=== PATIENT | male | born 1935 | race Caucasian/White ===

== ENCOUNTER 2021-04-05 03:23 | Inpatient (IN) ==
[2021-04-05] MEDS ORDERED: 0.9 % SODIUM CHLORIDE 500 ML IV ONE (03:24)
[2021-04-05] MEDS ORDERED: ACETAMINOPHEN 500 MG TABLET PO ONE (03:31)
[2021-04-05] MEDS ORDERED: ACETAMINOPHEN 325 MG TABLET PO ONE (03:40)
[2021-04-05 03:54] LABS: POC Blood Urea Nitrogen 56 mg/dL (6-20); POC CO2 16 mmol/L (22-30); POC Calcium, Ionized 1.15 mmEq/L (1.16-1.32); POC Chloride 114 mEq/L (96-108); POC Creatinine 2.6 mg/dL (0.6-1.2); POC Glucose, Random 131 mg/dL (70-105); POC Hematocrit 25 % (41-55); POC Sodium 144 mEq/L (133-145)
[2021-04-05 04:30] LABS: Basophils # (Auto) 0.01 K/mcL (0.00-0.30); Basophils % (Auto) 0.2 % (0.0-2.0); Eosinophils # (Auto) 0 K/mcL (0.00-0.70); Eosinophils % (Auto) 0 % (0.0-7.0); Hematocrit 29.1 % (40.1-51.0); Lymphocytes # (Auto) 0.87 K/mcL (1.50-4.80); Lymphocytes % (Auto) 20.6 % (15.5-49.0); Mean Cell Volume 104.3 fL (80.0-100.0); Mean Corpuscular HGB Conc 30.9 g/dL (31.0-36.0); Monocytes # (Auto) 0.51 K/mcL (0.10-0.90); Monocytes % (Auto) 12.1 % (1.0-12.0); Neutrophils % (Auto) 67.1 % (38.0-78.0); Platelet Count 109 K/mcL (140-440); RBC 2.79 M/mcL (4.63-6.08); Red Cell Distribution Width 13.3 % (11.5-14.5); WBC 4.2 K/mcL (4.5-11.0)
[2021-04-05] MEDS ORDERED: DEXAMETHASONE 10 MG/ML VIAL IV ONE (04:42)
[2021-04-05] MEDS ORDERED: REMDESIVIR 200 MG in 0.9 % SODIUM CHLORIDE 250 ML IV ONE (04:42)
--- NOTE | 2021-04-05 04:48 | XRay Report ---
CLINICAL INFORMATION: weakness COMPARISON: 10/10/2019 FINDINGS: Heart size, mediastinum and pulmonary vessels are normal. Mild patchy infiltrates are seen in both lower lungs. IMPRESSION: Mild vague patchy infiltrates in both lower lungs. Consider infection or aspiration Interpreted and Authenticated by: Ilir Mcintosh 04/05/21
--- NOTE | 2021-04-05 05:20 | Emergency Department Note ---
HPI General Chief complaint: Weakness Stated complaint: covid/weakness Source: patient Mode of arrival: ambulatory Limitations: no limitations History of Present Illness HPI Narrative: Narrative: Patient is an 86-year-old male who presents with chief complaint of weakness. Patient was diagnosed with Covid yesterday, after he had had several days worth of symptoms including cough and body aches. He has not had any shortness of breath throughout his duration of symptoms, and the primary reason for coming in this evening was because of worsening weakness. Patient came in by EMS after they had run on him for the third time this evening for a fall where his could not help him up. He did not hit his head or lose consciousness, and states that it was just because he was out of strength. He otherwise states he is feeling well overall. Denies any headache, neck pain, chest pain, shortness of breath, nausea, vomiting, abdominal pain, changes in bowel movements or urinary symptoms. Related Data Home Medications Medication Instructions Recorded Confirmed blood sugar diagnostic 03/25/15 03/06/21 cinnamon bark 500 mg capsule 03/25/15 03/06/21 levothyroxine 125 mcg tablet 125 mcg PO QDAY 08/30/15 03/06/21 isosorbide dinitrate 5 mg tablet 5 mg PO BID tab 11/23/15 03/06/21 lutein 20 mg tablet 20 mg PO QDAY 11/23/15 03/06/21 multivitamin,ru-mkab-hyxsyjvs 1 tab PO QDAY 11/23/15 03/06/21 saw palm 160 mg-vit E 100 tab PO QDAY tab 08/27/16 03/06/21 unit-selen 100 ave-vkby-czfbma-pygeum tablet methocarbamol 750 mg tablet 750 mg PO qhs 30 Days #30 tab 01/28/17 03/06/21 insulin degludec 100 unit/mL (3 5 unit SUB-Q QDAY ml 03/04/18 03/06/21 mL) subcutaneous pen coenzyme Q10 200 mg capsule 200 mg PO QDAY 09/03/18 03/06/21 docusate sodium 50 mg capsule 50 mg PO QDAY 09/03/18 03/06/21 grape seed extract 50 mg capsule 50 mg PO QDAY cap 09/03/18 03/06/21 atorvastatin 40 mg tablet 40 mg PO QHS 10/29/19 03/06/21 acetaminophen 500 mg tablet 1,000 mg PO QHS tab 03/03/20 03/06/21 Vipin Contour Next Test in Vitro NOT APPLICABLE .4XD 05/17/20 03/06/21 Strip Carefine Pen Ayden 32G X 4MM TRANSDERMAL .daily 05/17/20 03/06/21 One Touch Verio In Vitro Strip NOT APPLICABLE .2XD 05/17/20 03/06/21 collagen 4 tab PO QDAY 05/31/20 03/06/21 ferrous sulfate 27 mg iron tablet 27 mg PO Q OTHER DAY tab 05/31/20 03/06/21 potassium gluconate 600 mg (99 mg) 600 mg PO QDAY tab 05/31/20 03/06/21 tablet terazosin 10 mg capsule 10 mg PO QHS 90 Days #90 cap 05/31/20 03/06/21 l-argine PO QDAY 06/09/20 03/06/21 nateglinide 120 mg tablet 60 mg PO .COMPLEX tab 06/09/20 03/06/21 furosemide 20 mg tablet 20 mg PO Q OTHER DAY tab 08/29/20 03/06/21 metoprolol succinate 100 mg See Rx Instructions .ROUTE 08/29/20 03/06/21 tablet,extended release 24 hr .COMPLEX tab magnesium 200 mg tablet 400 mg PO HS tab 12/27/20 03/06/21 aspirin 81 mg tablet,delayed 81 mg PO QDAY 03/06/21 03/06/21 release hydrochlorothiazide 25 mg tablet 25 mg PO QAM 03/06/21 03/06/21 losartan 100 mg tablet 100 mg PO QDAY 03/06/21 03/06/21 Previous Rx's Medication Instructions Recorded finasteride 5 mg tablet 5 mg PO QDAY #90 tab 04/18/20 Allergies Allergy/AdvReac Type Severity Reaction Status Date / Time gabapentin Allergy Unknown Unknown Verified 04/05/21 03:24 lisinopril [LISINOPRIL] Allergy Unknown RASH Verified 04/05/21 03:24 spironolactone Allergy Unknown Possibly Verified 04/05/21 03:24 Gynecomastia Sulfa (Sulfonamide Allergy Unknown RASH Verified 04/05/21 03:24 Antibiotics) [SULFA (SULFONAMIDE ANTIBIOTICS)] Review of Systems ROS ROS Narrative: Narrative: All systems ED: reviewed and negative except as stated. PFSH Narrative Patient History Narrative: Narrative: Medical/Surgical/Family History All Active Problems (Updated 04/05/21 @ 05:27 by Ravi Bowie DO) Atrial fibrillation (Chronic) BPH without obstruction/lower urinary tract symptoms (Chronic) Cough (Chronic) Diabetes mellitus, type II (Chronic ~1993) Diabetic nephropathy (Chronic) Erectile dysfunction (Chronic) GERD (gastroesophageal reflux disease) (Chronic) Hypertension, essential (Chronic ~1979) Hypothyroidism, acquired (Chronic) Osteoarthritis (Chronic) Post herpetic neuralgia (Chronic) Renal insufficiency (Chronic) Allergic rhinitis (Chronic) Hx of adenoidectomy (Chronic) Hx of cataract surgery (Chronic) Hx of hand surgery (Chronic) Hx of hernia repair (Chronic) History of right knee joint replacement (Chronic) Hx of shoulder surgery (Chronic ~08/09/05) Hx of tonsillectomy (Chronic) CKD (chronic kidney disease), stage III (Chronic) Hypertensive renal disease (Chronic) Edema (Chronic) Anemia (Chronic) Type 2 diabetes mellitus without complication, with long-term current use of insulin (Chronic) Palpitations (Chronic) Intermittent atrial fibrillation (Chronic) CKD (chronic kidney disease), stage IV (Chronic) Sleep apnea (Chronic) Snoring (Chronic) Myalgia (Chronic) Claudication of calf muscles (Chronic) Lumbar radiculopathy (Chronic) Lumbar spinal stenosis (Chronic) Degenerative disc disease (Chronic) Restless leg syndrome (Chronic) Anxiety disorder (Chronic) Benign prostatic hyperplasia (Chronic) Squamous cell carcinoma (Chronic) Long-term insulin use (Chronic) Long-term use of aspirin therapy (Chronic) Low back pain (Chronic) Claudication of both lower extremities (Chronic) Generalized muscle weakness (Chronic) Cervical radiculopathy (Chronic) Low blood pressure (Chronic) Dizziness (Chronic) Liver disease (Chronic) Herniated disc (Chronic) Peripheral neuropathy (Chronic) History of appendectomy (Chronic) History of back surgery (Chronic ~2017) Irregular heart beat (Chronic) CAD (coronary artery disease) (Chronic) TIN (tubulointerstitial nephritis) (Chronic) Obstructive sleep apnea (Chronic) Left carotid bruit (Acute) Pre-op testing (Acute) Minor closed head injury (Acute) Maceration of skin (Acute) Contusion of face (Acute) COVID-19 (Acute) COVID-19 (Acute) Weakness (Acute) Medical History Allergic rhinitis Anemia Anxiety disorder Situational, mild Atrial fibrillation Benign prostatic hyperplasia BPH without obstruction/lower urinary tract symptoms CAD (coronary artery disease) Cervical radiculopathy CKD (chronic kidney disease), stage III Claudication of both lower extremities Claudication of calf muscles Cough Degenerative disc disease Diabetes mellitus, type II (~1993) Diabetic nephropathy Dizziness Edema Edema/lymphedema from prior viera on his legs Erectile dysfunction Generalized muscle weakness GERD (gastroesophageal reflux disease) Herniated disc Hypertension, essential (~1979) Requires multi drug treatment Hypertensive renal disease Goal blood pressure is 130/80, he has been running above that but attempts to increase his blood pressure medications have been met with orthostatic hypotension Hypothyroidism, acquired Irregular heart beat Left carotid bruit Liver disease Long-term insulin use Long-term use of aspirin therapy Low back pain Low blood pressure Lumbar radiculopathy Lumbar spinal stenosis Myalgia Obstructive sleep apnea Osteoarthritis Idiopathic Peripheral neuropathy Post herpetic neuralgia Pre-op testing Renal insufficiency Restless leg syndrome Sleep apnea Snoring Squamous cell carcinoma Type 2 diabetes mellitus without complication, with long-term current use of insulin Controlled by diet oral hypoglycemics [id number] cinnamon and long- acting insulin. No evidence of underlying diabetic renal disease Surgical History History of appendectomy History of back surgery (~2017) History of right knee joint replacement Hx of adenoidectomy Hx of cataract surgery bilateral Hx of hand surgery finger surgery Hx of hernia repair 8 months old Hx of shoulder surgery (~08/09/05) Rotator cuff repair Hx of tonsillectomy Family History Mother , age 60 Weight disorder Heart disease Diabetes mellitus Heart attack Father , age 88 Heart disease History of artificial heart valve Family/Other Diabetes mellitus sibling Social History Smoking Status: Former smoker Alcohol Intake Frequency: does not drink Substance Use: does not use Exam Narrative Narrative: Narrative: Patient is laying in bed, talking normally and appropriately. He does not appear to be in acute discomfort or distress. He does appear to feel unwell though General Limitations: no limitations Head Head: Present atraumatic and normocephalic Eye Eye: Present normal appearance, PERRL and EOMI; Absent scleral icterus and conjunctival injection ENT ENT: Present normal oropharynx and mucous membranes moist Neck Neck: Present full ROM and trachea midline; Absent tenderness and lymphadenopathy Chest Chest: Present symmetric chest wall rise Respiratory Respiratory: Present normal lung sounds bilaterally; Absent respiratory distress, rales/crackles, wheezes, stridor and accessory muscle use Cardiovascular Cardiovascular: Present regular rate and normal rhythm; Absent systolic murmur and diastolic murmur Adbominal Abdominal: Present soft; Absent tenderness, guarding, rebound, rigidity and mass Extremities Extremities: Absent pedal edema, pretibial edema and calf tenderness Back Back: Absent CVA tenderness (R), CVA tenderness (L) and spinous process tende rness Neurological Neurological: Present alert and oriented X3 Psychiatric Psychiatric: Present normal affect and normal mood Skin Skin: Present warm (WNL) and dry Course Vital Signs Vital signs: Vital Signs Temperature 101.5 F H 04/05/21 03:24 Pulse Rate 74 04/05/21 03:24 Respiratory Rate 27 H 04/05/21 03:24 Blood Pressure 170/77 04/05/21 03:24 Pulse Oximetry (%) 88 L 04/05/21 03:24 Temperature 101.5 F H 04/05/21 03:24 Pulse Rate 64 04/05/21 05:21 Respiratory Rate 21 04/05/21 05:21 Blood Pressure 165/58 04/05/21 05:16 Pulse Oximetry (%) 97 04/05/21 05:21 [facility] MDM Narrative Medical decision making narrative: Narrative: Patient is a an 86-year-old male who presents with chief complaint of Covid and weakness. At this time patient has no significant shortness of breath, and is only requiring some supplemental oxygen to keep his oxygenation in the high 80s to low 90s. He has no significant increased work of breathing, however he has had multiple falls at home within a few hours that EMS had to go and help him get up because his could not take care of him. Because of this, I do feel that he would benefit from admission the hospital as he will be unable to care for himself at home while he attempts to fight off Covid. Patient did have his [employer] Covid vaccine. Due to the supplemental oxygen use I have given the patient Decadron, and due to his worsening symptoms we have added on remdesivir. Plan will be to admit him to the hospital for continued work-up and management. Patient is agreeable to the plan at this time. I discussed case the hospitalist, who agrees to the plan of admission to the PCU. Lab Data Result diagrams: 04/05/21 03:35 Labs: Lab Results 04/05/21 04/05/21 Range/Units 03:35 03:35 WBC 4.2 L (4.5-11.0) K/mcL RBC 2.79 L (4.63-6.08) M/mcL Hgb 9.0 L (13.7-17.5) g/dL Hct 29.1 L (40.1-51.0) % POC Hct 25 L (41-55) % MCV 104.3 H (80.0-100.0) fL MCH 32.3 (26.0-34.0) pg MCHC 30.9 L (31.0-36.0) g/dL RDW 13.3 (11.5-14.5) % Plt Count 109 L (140-440) K/mcL MPV 10.0 (7.4-10.4) fL Neut % (Auto) 67.1 (38.0-78.0) % Lymph % (Auto) 20.6 (15.5-49.0) % [place] % (Auto) 12.1 H (1.0-12.0) % Eos % (Auto) 0 (0.0-7.0) % Baso % (Auto) 0.2 (0.0-2.0) % Lymph # (Auto) 0.87 L (1.50-4.80) K/mcL [place] # (Auto) 0.51 (0.10-0.90) K/mcL Eos # (Auto) 0 (0.00-0.70) K/mcL Baso # (Auto) 0.01 (0.00-0.30) K/mcL Absolute Neutrophils 2.83 (1.80-8.00) K/mcL POC Sodium 144 (133-145) mEq/L POC Potassium 4.0 (3.3-5.1) mEql/L POC Chloride 114 H (96-108) mEq/L POC Total CO2 16 L (22-30) mmol/L POC BUN 56 H (6-20) mg/dL POC Creatinine 2.6 H (0.6-1.2) mg/dL POC Glucose 131 H (70-105) mg/dL POC WB Ioniz Calcium 1.15 L (1.16-1.32) mmEq/L Discharge Plan Patient/Caregiver Discharge Instructions Pt seen by [facility]/PA only: No Clinical Impression: COVID-19, Weakness Patient Disposition: Xfer As Inpt ([facility]) Follow up with: Matteo Ferreira DO [Primary Care Provider] - Prescriptions: No Action finasteride 5 mg tablet 5 mg PO QDAY Qty: 90 RF: 1 (DME) blood sugar diagnostic strip See Dose Instructions .ROUTE .MEDSUPPLY RF: 0 (DME) cinnamon bark 500 mg capsule See Dose Instructions .ROUTE .MEDSUPPLY RF: 0 collagen 4 tab PO QDAY RF: 0 potassium gluconate 600 mg (99 mg) tablet 600 mg PO QDAY RF: 0 nateglinide 120 mg tablet 60 mg PO .COMPLEX RF: 0 Carefine Pen Ayden 32G X 4MM transdermal .daily RF: 0 Vipin Contour Next Test in Vitro Strip Not Applicable .4XD RF: 0 One Touch Verio In Vitro Strip Not Applicable .2XD RF: 0 magnesium 200 mg tablet 400 mg PO HS RF: 0 levothyroxine 125 mcg tablet 125 mcg PO QDAY RF: 0 lutein 20 mg tablet 20 mg PO QDAY RF: 0 multivitamin,hi-hqpy-rrxnkzbj [Complete Multivitamin] tablet 1 tab PO QDAY RF: 0 isosorbide dinitrate 5 mg tablet 5 mg PO BID RF: 0 saw-vit E-sod adt-rsn-dsqs-pyg [Prostate Health] 160-100-100 mg-unit-mcg tablet PO QDAY RF: 0 methocarbamol 750 mg tablet 750 mg PO qhs 30 Days Qty: 30 RF: 0 insulin degludec [Tresiba FlexTouch U-100] 100 unit/mL (3 mL) insulin pen 5 unit SUB-Q QDAY RF: 0 grape seed extract [Grape Seed] 50 mg capsule 50 mg PO QDAY RF: 0 coenzyme Q10 [Co Q-10] 200 mg capsule 200 mg PO QDAY RF: 0 Stool Softener 50 mg capsule 50 mg PO QDAY RF: 0 acetaminophen [Tylenol Extra Strength] 500 mg tablet 1,000 mg PO QHS RF: 0 metoprolol succinate 100 mg tablet extended release 24 hr See Rx Instructions .ROUTE .COMPLEX RF: 0 ferrous sulfate 27 mg iron tablet 27 mg PO Q OTHER DAY RF: 0 atorvastatin [Lipitor] 40 mg tablet 40 mg PO QHS RF: 0 terazosin 10 mg capsule 10 mg PO QHS 90 Days Qty: 90 RF: 0 furosemide 20 mg tablet 20 mg PO Q OTHER DAY RF: 0 losartan 100 mg tablet 100 mg PO QDAY RF: 0 hydrochlorothiazide 25 mg tablet 25 mg PO QAM RF: 0 aspirin [Adult Aspirin Regimen] 81 mg tablet,delayed release (DR/EC) 81 mg PO QDAY RF: 0 l-argine PO QDAY RF: 0
[2021-04-05] MEDS ORDERED: ACETAMINOPHEN 325 MG TABLET PO PRN ×2 (05:24→09:12)
[2021-04-05] MEDS ORDERED: ONDANSETRON 4 MG/2 ML VIAL IV PRN ×3 (05:24→09:12)
[2021-04-05] MEDS ORDERED: 0.9 % SODIUM CHLORIDE 10 ML SYRINGE IV SCH (06:00)
[2021-04-05] MEDS ORDERED: DEXTROSE 50% 50 ML VIAL IV PRN ×2 (08:34→09:12)
[2021-04-05] MEDS ORDERED: DEXTROSE 31 GM ORAL.SUSP PO PRN ×2 (08:34→09:12)
--- NOTE | 2021-04-05 08:48 | Internal Med History&Physical ---
HPI History of Present Illness Patient information: Note initiated : 04/05/21 at 8:36 am Service Date, if different from initiated Date: [] Patient: Forrest Juarez 86 y/o M admitted on 04/05/21 for COVID/Weakness. Chief Complaint: [CoVID pneumonia] History of present illness: Mr. Juarez is a 86 year old M history of atrial fibrillation, type 2 diabetes, chronic kidney disease stage IV, essential hypertension, mixed dyslipidemia, GERD, BPH, hypothyroidism, CAD, presenting with 3-day history of general body weakness as well as shortness of breath. He has been vaccinated with [employer] vaccine back in September 2020. He was diagnosed with Covid pneumonia 2 days ago. He presented and returned back to our ED yesterday night due to worsening symptoms of general body weakness and shortness of breath. He otherwise denies any fever or chills or diaphoresis. He denies any cough, sputum productions, or respiratory wheezings. He also denies any GI symptoms such as nausea, vomiting, diarrhea, or constipation's. Vital signs at ED presentation significant for oxygen saturation in the mid 80s on room air after which he was placed on 10 L of oxygen and his oxygen saturations went up to the mid to high 90s. He is also having atrial fibrillation with heart rate went up to 120s beats per minute. Labs significant for lack of leukocytosis with WBC 4.2. POC serum creatinine 2.6 with baseline around 2.2. Chest x-ray findings typical for Covid pneumonia. Constitutional Constitutional: Present weakness; Absent chills, excessive sweating, fatigue and fever(s) EENT Eyes: Absent blurry vision, change in vision, loss of vision and other visual disturbances Ears: Absent decreased hearing and tinnitus Nose, mouth and throat: Absent abnormal hearing, dry mouth, headache(s), nasal congestion and sore throat Cardiovascular Cardiovascular: Absent chest pain, chest pain at rest, edema, irregular heart rhythm and palpatations Respiratory Respiratory: Present dyspnea; Absent cough and wheezing Gastrointestinal Gastrointestinal: Absent abdominal pain, constipation, diarrhea, nausea and vomiting Musculoskeletal Musculoskeletal: Absent back pain, deformity, limited range of motion, muscle cramps, muscle weakness and numbness Integumentary Integumentary: Absent lesions, rash and wounds Neurological Neurological: Absent focal weakness, headache(s) and numbness Psychiatric Psychiatric: Absent anxiety, depression and hallucinations PFSH PFSH All Active Problems (Updated 04/05/21 @ 08:51 by Troy Camara MD) Macrocytic anemia with vitamin B12 deficiency (Acute) Atrial fibrillation (Chronic) BPH without obstruction/lower urinary tract symptoms (Chronic) Cough (Chronic) Diabetes mellitus, type II (Chronic ~1993) Diabetic nephropathy (Chronic) Erectile dysfunction (Chronic) GERD (gastroesophageal reflux disease) (Chronic) Hypertension, essential (Chronic ~1979) Hypothyroidism, acquired (Chronic) Osteoarthritis (Chronic) Post herpetic neuralgia (Chronic) Renal insufficiency (Chronic) Allergic rhinitis (Chronic) Hx of adenoidectomy (Chronic) Hx of cataract surgery (Chronic) Hx of hand surgery (Chronic) Hx of hernia repair (Chronic) History of right knee joint replacement (Chronic) Hx of shoulder surgery (Chronic ~08/09/05) Hx of tonsillectomy (Chronic) CKD (chronic kidney disease), stage III (Chronic) Hypertensive renal disease (Chronic) Edema (Chronic) Anemia (Chronic) Type 2 diabetes mellitus without complication, with long-term current use of insulin (Chronic) Palpitations (Chronic) Intermittent atrial fibrillation (Chronic) CKD (chronic kidney disease), stage IV (Chronic) Sleep apnea (Chronic) Snoring (Chronic) Myalgia (Chronic) Claudication of calf muscles (Chronic) Lumbar radiculopathy (Chronic) Lumbar spinal stenosis (Chronic) Degenerative disc disease (Chronic) Restless leg syndrome (Chronic) Anxiety disorder (Chronic) Benign prostatic hyperplasia (Chronic) Squamous cell carcinoma (Chronic) Long-term insulin use (Chronic) Long-term use of aspirin therapy (Chronic) Low back pain (Chronic) Claudication of both lower extremities (Chronic) Generalized muscle weakness (Chronic) Cervical radiculopathy (Chronic) Low blood pressure (Chronic) Dizziness (Chronic) Liver disease (Chronic) Herniated disc (Chronic) Peripheral neuropathy (Chronic) History of appendectomy (Chronic) History of back surgery (Chronic ~2017) Irregular heart beat (Chronic) CAD (coronary artery disease) (Chronic) TIN (tubulointerstitial nephritis) (Chronic) Obstructive sleep apnea (Chronic) Left carotid bruit (Acute) Pre-op testing (Acute) Minor closed head injury (Acute) Maceration of skin (Acute) Contusion of face (Acute) COVID-19 (Acute) COVID-19 (Acute) Weakness (Acute) Medical History Allergic rhinitis Anemia Anxiety disorder Situational, mild Atrial fibrillation Benign prostatic hyperplasia BPH without obstruction/lower urinary tract symptoms CAD (coronary artery disease) Cervical radiculopathy CKD (chronic kidney disease), stage III Claudication of both lower extremities Claudication of calf muscles Cough Degenerative disc disease Diabetes mellitus, type II (~1993) Diabetic nephropathy Dizziness Edema Edema/lymphedema from prior viera on his legs Erectile dysfunction Generalized muscle weakness GERD (gastroesophageal reflux disease) Herniated disc Hypertension, essential (~1979) Requires multi drug treatment Hypertensive renal disease Goal blood pressure is 130/80, he has been running above that but attempts to increase his blood pressure medications have been met with orthostatic hypotension Hypothyroidism, acquired Irregular heart beat Left carotid bruit Liver disease Long-term insulin use Long-term use of aspirin therapy Low back pain Low blood pressure Lumbar radiculopathy Lumbar spinal stenosis Myalgia Obstructive sleep apnea Osteoarthritis Idiopathic Peripheral neuropathy Post herpetic neuralgia Pre-op testing Renal insufficiency Restless leg syndrome Sleep apnea Snoring Squamous cell carcinoma Type 2 diabetes mellitus without complication, with long-term current use of ins ulin Controlled by diet oral hypoglycemics [id number] cinnamon and long- acting insulin. No evidence of underlying diabetic renal disease Surgical History History of appendectomy History of back surgery (~2017) History of right knee joint replacement Hx of adenoidectomy Hx of cataract surgery bilateral Hx of hand surgery finger surgery Hx of hernia repair 8 months old Hx of shoulder surgery (~08/09/05) Rotator cuff repair Hx of tonsillectomy Family History Mother , age 60 Weight disorder Heart disease Diabetes mellitus Heart attack Father , age 88 Heart disease History of artificial heart valve Family/Other Diabetes mellitus sibling Social History marital status: occupational status: retired 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 - [employer] physical activity: none smoking status start date: 07/29/1953 smoking status stop date: 07/29/74 alcohol intake frequency: does not drink substance use type: does not use MEDS/ALLERGIES Home Medications and Allergies Home Medications Medication Instructions Recorded Confirmed Type blood sugar diagnostic 03/25/15 03/06/21 History cinnamon bark 500 mg capsule 03/25/15 03/06/21 History levothyroxine 125 mcg tablet 125 mcg PO QDAY 08/30/15 03/06/21 History isosorbide dinitrate 5 mg tablet 5 mg PO BID tab 11/23/15 03/06/21 History lutein 20 mg tablet 20 mg PO QDAY 11/23/15 03/06/21 History multivitamin,hk-uzyb-gihugcjc 1 tab PO QDAY 11/23/15 03/06/21 History saw palm 160 mg-vit E 100 tab PO QDAY tab 08/27/16 03/06/21 History unit-selen 100 yak-yljy-pswrry-pygeum tablet methocarbamol 750 mg tablet 750 mg PO qhs 30 Days #30 tab 01/28/17 03/06/21 History insulin degludec 100 unit/mL (3 5 unit SUB-Q QDAY ml 03/04/18 03/06/21 History mL) subcutaneous pen coenzyme Q10 200 mg capsule 200 mg PO QDAY 09/03/18 03/06/21 History docusate sodium 50 mg capsule 50 mg PO QDAY 09/03/18 03/06/21 History grape seed extract 50 mg capsule 50 mg PO QDAY cap 09/03/18 03/06/21 History atorvastatin 40 mg tablet 40 mg PO QHS 10/29/19 03/06/21 History acetaminophen 500 mg tablet 1,000 mg PO QHS tab 03/03/20 03/06/21 History finasteride 5 mg tablet 5 mg PO QDAY #90 tab 04/18/20 03/06/21 Rx Vipin Contour Next Test in Vitro NOT APPLICABLE .4XD 05/17/20 03/06/21 History Strip Carefine Pen [place] 32G X 4MM TRANSDERMAL .daily 05/17/20 03/06/21 History One Touch Verio In Vitro Strip NOT APPLICABLE .2XD 05/17/20 03/06/21 History collagen 4 tab PO QDAY 05/31/20 03/06/21 History ferrous sulfate 27 mg iron tablet 27 mg PO Q OTHER DAY tab 05/31/20 03/06/21 History potassium gluconate 600 mg (99 mg) 600 mg PO QDAY tab 05/31/20 03/06/21 History tablet terazosin 10 mg capsule 10 mg PO QHS 90 Days #90 cap 05/31/20 03/06/21 History l-argine PO QDAY 06/09/20 03/06/21 History nateglinide 120 mg tablet 60 mg PO .COMPLEX tab 06/09/20 03/06/21 History furosemide 20 mg tablet 20 mg PO Q OTHER DAY tab 08/29/20 03/06/21 History metoprolol succinate 100 mg See Rx Instructions .ROUTE 08/29/20 03/06/21 History tablet,extended release 24 hr .COMPLEX tab magnesium 200 mg tablet 400 mg PO HS tab 12/27/20 03/06/21 History aspirin 81 mg tablet,delayed 81 mg PO QDAY 03/06/21 03/06/21 History release hydrochlorothiazide 25 mg tablet 25 mg PO QAM 03/06/21 03/06/21 History losartan 100 mg tablet 100 mg PO QDAY 03/06/21 03/06/21 History Allergies Allergy/AdvReac Type Severity Reaction Status Date / Time gabapentin Allergy Unknown Unknown Verified 04/05/21 03:24 lisinopril [LISINOPRIL] Allergy Unknown RASH Verified 04/05/21 03:24 spironolactone Allergy Unknown Possibly Verified 04/05/21 03:24 Gynecomastia Sulfa (Sulfonamide Allergy Unknown RASH Verified 04/05/21 03:24 Antibiotics) [SULFA (SULFONAMIDE ANTIBIOTICS)] EXAM Constitutional Vitals: Temp Pulse Resp BP Pulse Ox 36.8 C 57 L 20 148/55 95 04/05/21 08:02 04/05/21 08:02 04/05/21 08:02 04/05/21 08:02 04/05/21 08:02 General appearance: cooperative and no acute distress Head Head exam: Present atraumatic and normocephalic Eye Eye exam: Present EOMI and PERRL ENT ENT exam: Present mucous membranes moist, normal exam and normal external ear exam Additional comments: Nasal cannula in place Neck Neck exam: Present normal inspection; Absent lymphadenopathy, tenderness and thyromegaly Respiratory Respiratory exam: Absent accessory muscle use, respiratory distress and wheezes Cardiovascular Cardiovascular exam: Present normal rate and rhythm; Absent JVD GI/Abdominal GI/Abdominal exam: Present normal bowel sounds and soft; Absent organomegaly and tenderness Rectal Rectal exam: Present deferred Extremities Exam Extremities exam: Present full ROM, normal capillary refill and normal inspection; Absent tenderness Neurological Exam Neurological exam: Present alert, CN II-XII intact and oriented X3; Absent motor sensory deficit Psychiatric Psychiatric exam: Present normal affect and normal mood; Absent anxious and depressed Skin Skin exam: Present dry and intact DATA Data Completed and Pending Labs: Labs from last 24 hours 04/05/21 04/05/21 03:35 03:35 WBC 4.2 L RBC 2.79 L Hgb 9.0 L Hct 29.1 L POC Hct 25 L MCV 104.3 H MCH 32.3 MCHC 30.9 L RDW 13.3 Plt Count 109 L MPV 10.0 Neut % (Auto) 67.1 Lymph % (Auto) 20.6 [place] % (Auto) 12.1 H Eos % (Auto) 0 Baso % (Auto) 0.2 Lymph # (Auto) 0.87 L [place] # (Auto) 0.51 Eos # (Auto) 0 Baso # (Auto) 0.01 Absolute Neutrophils 2.83 POC Sodium 144 POC Potassium 4.0 POC Chloride 114 H POC Total CO2 16 L POC BUN 56 H POC Creatinine 2.6 H POC Glucose 131 H POC WB Ioniz Calcium 1.15 L A/P Assessment and plan (1) Atrial fibrillation: Status: Chronic Qualifiers: Atrial fibrillation type: unspecified chronic Qualified Code(s): I48.20 - Chronic atrial fibrillation, unspecified; I48.2 - Chronic atrial fibrillation (2) Diabetes mellitus, type II: Status: Chronic (3) Diabetic nephropathy: Status: Chronic (4) GERD (gastroesophageal reflux disease): Status: Chronic (5) Hypertension, essential: Status: Chronic Comment: Requires multi drug treatment (6) Hypothyroidism, acquired: Status: Chronic (7) Macrocytic anemia with vitamin B12 deficiency: Status: Acute (8) CKD (chronic kidney disease), stage IV: Status: Chronic Comment: 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 CoVID pneumonia: Inpatient med surg telemetry Isolation: airborne and contact Supplemental oxygen therapy titrate to keep spo2 >=92% CXR every few days cbc w/ auto diff in the AM to trend WBC Remdesivir Dexamethasone Heparin+Warfarin Tylenol PRN fever Robitussin DM PRN cough DuoNEB NEB q4hr PRN wheezing PT OT evaluation for placement 2. Atrial fibrillation: [id number] VASc score of 5, anticoagulation therapy indicated Heparin with Warfarin, at least 5 days bridging. Pharmacy assistance for dosing appreciated Metoprolol ER for rate control Lopressor 5mg IV q5min PRN HR>120BPM 3. h/o CAD: Continue ASA, statin, Isosorbide dinitrate, and Metoprolol ER 4. Essential HTN: Continue Metoprolol ER and Losartan 5. Mixed dyslipidemia: Continue statin therapy 6. T2DM: HgA1c Insulin: scheduled and sliding scale AC HS Accu Chek AC HS Hypoglycemia protocol Diabetic diet 7. Hypothyroidism: Continue thyroid replacement therapy 8. GERD: Continue oral PPI 9. BPH: Continue Flomax and Finasteride 10. CKD4: Avoid nephrotoxic agents Okay to resume Losartan Saline lock Daily CMP to trend kidney functions GI ppx: Continue oral PPI DVT ppx: Heparin + Warfarin Code status: Full Prognosis: guarded Disposition: inpatient med surg tele; PT OT Time Spent With Patient Time: Total time spent is greater than 50% in coordination of care (as documented) at patient's floor/unit and/or counseling patient: Total time spent with greater than 50% in coordination of care (as documented) at patient's floor/unit and/or counseling patient:: Greater than 35 minutes QUALITY VTE Deep Vein Thrombosis/Pulmonary Embolism Present on Admission: No
[2021-04-05] MEDS ORDERED: IPRATROPIUM/ALBUTEROL 3 ML AMPUL.NEB NEB PRN (09:12)
[2021-04-05] MEDS ORDERED: METOPROLOL TARTRATE 5 MG/5 ML VIAL IV PRN (09:12)
[2021-04-05 10:34] LABS: Hemoglobin A1C 6.1 % Hgb (4.0-6.0)
[2021-04-05] MEDS: DOCUSATE SODIUM 100 MG CAPSULE PO SCH ×2 (10:42→21:49)
[2021-04-05] MEDS: HEPARIN 5,000 UNIT/ML VIAL SQ SCH ×2 (10:50→21:52)
[2021-04-05 11:11] LABS: ALT/SGPT 20 U/L (<40); AST/SGOT 28 U/L (<40); Alkaline Phosphatase 65 U/L (39-117)
[2021-04-05] MEDS ORDERED: INSULIN LISPRO 1 UNIT/0.01 ML UNIT SQ SCH (11:30)
[2021-04-05] MEDS: INSULIN LISPRO 1 UNIT/0.01 ML UNIT SQ SCH ×3 (11:31→23:51)
--- NOTE | 2021-04-05 13:03 | EKG ---
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 Measurements Intervals [place] Rate: 73 P: 65 [place]: 179 QRS: -37 QRSD: 154 T: 106 QT: 431 QTc: 475 Interpretive Statements Sinus rhythm Left bundle branch block Electronically Signed On 04-05-2021 13:02:54 PDT by Ilir Cortes M.D. /store/[email or web address]/[id number]
[2021-04-05] MEDS: 0.9 % SODIUM CHLORIDE 10 ML SYRINGE IV SCH ×4 (14:10→23:23)
[2021-04-05] MEDS: METHOCARBAMOL 750 MG TABLET PO PRN (21:49)
[2021-04-05] MEDS: ATORVASTATIN 40 MG TABLET PO SCH (21:49)
[2021-04-05] MEDS: SENNOSIDES 1 TABLET PO SCH (21:49)
[2021-04-05] MEDS: TERAZOSIN 5 MG CAPSULE PO SCH (21:49)
[2021-04-05] MEDS: METOPROLOL SUCCINATE 50 MG TAB.XL.24H PO SCH (21:49)
[2021-04-05] MEDS: ACETAMINOPHEN 500 MG TABLET PO SCH (21:50)
[2021-04-05] MEDS: INSULIN GLARGINE, HUMAN 1 UNIT/0.01 ML SQ SCH (21:52)
[2021-04-05] MEDS: IPRATROPIUM 0.06% NASAL SPRAY BOTTLE 30ML NAS SCH (23:21)
[2021-04-06] MEDS: hydrALAZINE 20 MG/ML VIAL IV PRN (00:04)
[2021-04-06] MEDS: 0.9 % SODIUM CHLORIDE 10 ML SYRINGE IV SCH ×6 (05:23→20:31)
[2021-04-06 06:45] LABS: Basophils # (Auto) 0 K/mcL (0.00-0.30); Basophils % (Auto) 0 % (0.0-2.0); Eosinophils # (Auto) 0 K/mcL (0.00-0.70); Eosinophils % (Auto) 0 % (0.0-7.0); Hematocrit 30.9 % (40.1-51.0); Hemoglobin 9.3 g/dL (13.7-17.5); Lymphocytes # (Auto) 1.02 K/mcL (1.50-4.80); Lymphocytes % (Auto) 19.1 % (15.5-49.0); Mean Cell Volume 108.4 fL (80.0-100.0); Mean Corpuscular HGB Conc 30.1 g/dL (31.0-36.0); Mean Platelet Volume 9.9 fL (7.4-10.4); Monocytes # (Auto) 0.53 K/mcL (0.10-0.90); Monocytes % (Auto) 9.9 % (1.0-12.0); Platelet Count 103 K/mcL (140-440); RBC 2.85 M/mcL (4.63-6.08); Red Cell Distribution Width 13.2 % (11.5-14.5); WBC 5.3 K/mcL (4.5-11.0)
[2021-04-06 07:16] LABS: ALT/SGPT 17 U/L (<40); AST/SGOT 25 U/L (<40); Albumin 3.1 gm/dL (3.2-5.2); Albumin/Globulin Ratio 1.5 (1.0-2.3); Alkaline Phosphatase 60 U/L (39-117); Bilirubin,Total 0.2 mg/dL (0.1-1.0); Blood Urea Nitrogen 63 mg/dL (8-23); Carbon Dioxide 18 mmol/L (22-30); Chloride 115 mmol/L (96-108); Globulin 2.1 gm/dL (2.2-3.7); Glomerular Filtration Rate 25; Glucose 109 mg/dL (70-105)
[2021-04-06] MEDS: REMDESIVIR 100 MG in 0.9 % SODIUM CHLORIDE 250 ML IV SCH (08:29)
[2021-04-06] MEDS: INSULIN LISPRO 1 UNIT/0.01 ML UNIT SQ SCH ×4 (08:30→20:30)
[2021-04-06] MEDS: IPRATROPIUM 0.06% NASAL SPRAY BOTTLE 30ML NAS SCH ×4 (08:31→20:30)
[2021-04-06] MEDS: LEVOTHYROXINE 125 MCG TABLET PO SCH (08:50)
[2021-04-06] MEDS: LOSARTAN 50 MG TABLET PO SCH (08:50)
[2021-04-06] MEDS: FUROSEMIDE 20 MG TABLET PO SCH (08:50)
[2021-04-06] MEDS: MULTIVIT,THER IRON,CA,FA & MIN 1 TABLET PO SCH (08:50)
[2021-04-06] MEDS: HYDROCHLOROTHIAZIDE 25 MG TABLET PO SCH (08:51)
[2021-04-06] MEDS: METOPROLOL SUCCINATE 50 MG TAB.XL.24H PO SCH ×2 (08:51→20:17)
[2021-04-06] MEDS: DOCUSATE SODIUM 100 MG CAPSULE PO SCH ×2 (08:51→20:29)
[2021-04-06] MEDS: ISOSORBIDE DINITRATE 10 MG TABLET PO SCH ×2 (08:51→20:26)
[2021-04-06] MEDS: ASPIRIN 81 MG TAB.CHEW PO SCH (08:51)
[2021-04-06] MEDS: NATEGLINIDE 120 MG TABLET PO SCH ×3 (08:52→17:18)
[2021-04-06] MEDS ORDERED: DEXAMETHASONE 10 MG/ML VIAL IV SCH (09:00)
[2021-04-06] MEDS: FINASTERIDE 5 MG TABLET PO SCH (09:05)
[2021-04-06] MEDS: hydrALAZINE 25 MG TABLET PO SCH (09:05)
[2021-04-06] MEDS: COENZYME Q10 200 MG PO SCH (09:37)
[2021-04-06] MEDS: POTASSIUM GLUCONATE PO SCH (09:37)
[2021-04-06] MEDS: COLLAGEN PO SCH (09:37)
[2021-04-06] MEDS: HEPARIN 5,000 UNIT/ML VIAL SQ SCH ×2 (09:39→20:30)
--- NOTE | 2021-04-06 11:21 | Internal Med Progress Note ---
SUBJECTIVE Subjective Patient information: Note initiated : 04/06/21 at 11:17 am Service Date, if different from initiated Date: [] Patient: Forrest Juarez 86 y/o M admitted on 04/05/21 for COVID/Weakness. Chief Complaint: [CoVID pneumonia] Interval history: History of present illness: Mr. Juarez is a 86 year old M history of atrial fibrillation, type 2 diabetes, chronic kidney disease stage IV, essential hypertension, mixed dyslipidemia, GERD, BPH, hypothyroidism, CAD, presenting with 3-day history of general body weakness as well as shortness of breath. He has been vaccinated with [employer] vaccine back in September 2020. He was diagnosed with Covid pneumonia 2 days ago. He presented and returned back to our ED yesterday night due to worsening symptoms of general body weakness and shortness of breath. He otherwise denies any fever or chills or diaphoresis. He denies any cough, sputum productions, or respiratory whee zings. He also denies any GI symptoms such as nausea, vomiting, diarrhea, or constipation's. Vital signs at ED presentation significant for oxygen saturation in the mid 80s on room air after which he was placed on 10 L of oxygen and his oxygen saturations went up to the mid to high 90s. He is also having atrial fibrillation with heart rate went up to 120s beats per minute. Labs significant for lack of leukocytosis with WBC 4.2. POC serum creatinine 2.6 with baseline around 2.2. Chest x-ray findings typical for Covid pneumonia. 04/06: Afebrile overnight. This morning patient tolerates room air. c/o mild SOB and nonproductive cough; denies any sputum production. Denies any respiratory wh eezing. Denies any chest pain. Denies fever, chills, or sweating. C/o general body weakness. Constitutional Vitals: Vital Signs Temp Pulse Resp BP Pulse Ox 37.4 C H 72 27 H 151/61 95 04/06/21 08:01 04/06/21 10:02 04/06/21 10:02 04/06/21 10:02 04/06/21 10:02 Period Temp Pulse Resp BP Sys/Zepeda Pulse Ox Last 24 Hr 36.1 C-37.4 C 57-72 14-27 116-198/35-96 80-98 Intake and Output 04/05/21 04/06/21 04/06/21 21:59 05:59 13:59 Intake Total 480 250 Output Total 1600 700 Balance -1120 -700 250 Weight 92.714 kg Intake & Output: Intake & Output 04/05/21 04/06/21 04/06/21 21:59 05:59 13:59 Intake Total 480 250 Output Total 1600 700 Balance -1120 -700 250 Weight 92.714 kg Intake: IV 250 Veklury 100 mg In Sodium 250 Chloride 0.9% 250 ml @ 500 mls/ hr IV DAILY [facility] Rx#:[id number] Oral 480 Output: Urine Catheter Amount 1600 700 Other: Meal Dinner Percent of Meal Consumed 100% Feeding Ability Independent Urine Appearance Clear Clear Uretheral (Mas) Clear Urine Color Bright Yellow Dark Yellow Uretheral (Mas) Bright Yellow Urine Odor Normal General appearance: cooperative and no acute distress Head Head exam: Present atraumatic and normocephalic Eye Eye exam: Present EOMI and PERRL ENT ENT exam: Present mucous membranes moist, normal exam and normal external ear exam Neck Neck exam: Present normal inspection; Absent lymphadenopathy, tenderness and thyromegaly Respiratory Respiratory exam: Absent accessory muscle use, respiratory distress and wheezes Cardiovascular Cardiovascular exam: Present normal rate and rhythm; Absent JVD GI/Abdominal GI/Abdominal exam: Present normal bowel sounds and soft; Absent organomegaly and tenderness Rectal Rectal exam: Present deferred Extremities Exam Extremities exam: Present full ROM, normal capillary refill and normal inspection; Absent tenderness Neurological Exam Neurological exam: Present alert, CN II-XII intact and oriented X3; Absent motor sensory deficit Psychiatric Psychiatric exam: Present normal affect and normal mood; Absent anxious and depressed Skin Skin exam: Present dry and intact OBJ DATA Labs CBC & Chem 7: 04/06/21 05:30 04/06/21 05:30 Labs: Abnormal Lab Results 04/06/21 04/06/21 04/05/21 05:30 05:30 03:35 WBC RBC 2.85 L Hgb 9.3 L Hct 30.9 L POC Hct MCV 108.4 H MCHC 30.1 L Plt Count 103 L Roberts % (Auto) Lymph # (Auto) 1.02 L POC Chloride Chloride 115 H Carbon Dioxide 18 L POC Total CO2 POC BUN BUN 63 H Creatinine 2.3 H POC Creatinine Glucose 109 H POC Glucose Hemoglobin A1c 6.1 H Calcium 8.0 L POC WB Ioniz Calcium Total Protein 5.2 L Albumin 3.1 L Globulin 2.1 L 04/05/21 04/05/21 03:35 03:35 WBC 4.2 L RBC 2.79 L Hgb 9.0 L Hct 29.1 L POC Hct 25 L MCV 104.3 H MCHC 30.9 L Plt Count 109 L Roberts % (Auto) 12.1 H Lymph # (Auto) 0.87 L POC Chloride 114 H Chloride Carbon Dioxide POC Total CO2 16 L POC BUN 56 H BUN Creatinine POC Creatinine 2.6 H Glucose POC Glucose 131 H Hemoglobin A1c Calcium POC WB Ioniz Calcium 1.15 L Total Protein Albumin Globulin Meds: Medications Acetaminophen (Acetaminophen 325 Mg Tablet) 650 mg PO Q6HP PRN; Protocol PRN Reason: Per Pain Protocol/Fever > 101 Acetaminophen (Acetaminophen 500 Mg Tablet) 1,000 mg PO QHS [facility]; Protocol Last Admin: 04/05/21 21:50 Dose: 1,000 mg Documented by: Albuterol/Ipratropium (Ipratropium/Albuterol 3 Ml Ampul.Neb) 3 ml NEB Q4HRT PRN PRN Reason: Wheezing Aspirin (Aspirin 81 Mg Tab.Chew) 81 mg PO QDAY [facility] Last Admin: 04/06/21 08:51 Dose: 81 mg Documented by: Atorvastatin Calcium (Atorvastatin 40 Mg Tablet) 40 mg PO QHS [facility] Last Admin: 04/05/21 21:49 Dose: 40 mg Documented by: Dexamethasone (Dexamethasone 10 Mg/Ml Vial) 6 mg IV DAILY [facility] Last Admin: 04/06/21 08:51 Dose: 6 mg Documented by: Dextrose (Dextrose 50% 50 Ml Vial) 0 ml IV UD PRN PRN Reason: Hypoglycemia Diagnostic Test (Pha) (Accu-Chek 1 Each Strip) 1 each FS ACHS [facility] Last Admin: 04/06/21 07:30 Dose: 1 each Documented by: Docusate Sodium (Docusate Sodium 100 Mg Capsule) 100 mg PO BID [facility] Last Admin: 04/06/21 08:51 Dose: 100 mg Documented by: Ferrous Sulfate (Ferrous Sulfate 325 Mg Tablet) 325 mg PO Q48@0800 [facility] Finasteride (Finasteride 5 Mg Tablet) 5 mg PO QDAY [facility] Last Admin: 04/06/21 09:05 Dose: 5 mg Documented by: Furosemide (Furosemide 20 Mg Tablet) 20 mg PO Q48@0900 [facility] Last Admin: 04/06/21 08:50 Dose: 20 mg Documented by: Glucose (Dextrose 31 Gm Oral.Susp) 15 gm PO PRN PRN PRN Reason: Hypoglycemia Guaifenesin (Guaifenesin/Dextromethorphan Oral Shobha) 10 ml PO Q4HP PRN PRN Reason: Cough Heparin Sodium (Porcine) (Heparin 5,000 Unit/Ml Vial) 5,000 unit SQ Q12H [facility] Last Admin: 04/06/21 09:39 Dose: 5,000 unit Documented by: Hydralazine HCl (Hydralazine 25 Mg Tablet) 25 mg PO QDAY [facility] Last Admin: 04/06/21 09:05 Dose: 25 mg Documented by: Hydralazine HCl (Hydralazine 20 Mg/Ml Vial) 10 mg IV Q4-6HP PRN PRN Reason: Hypertension Last Admin: 04/06/21 00:04 Dose: 10 mg Documented by: Hydrochlorothiazide (Hydrochlorothiazide 25 Mg Tablet) 25 mg PO QAM [facility] Last Admin: 04/06/21 08:51 Dose: 25 mg Documented by: REMDESIVIR 100 mg/ Sodium (Chloride) 250 mls @ 500 mls/hr IV DAILY [facility] Stop: 04/09/21 09:29 Last Infusion: 04/06/21 08:59 Dose: Infused Documented by: Insulin Glargine (Insulin Glargine, Human 1 Unit/0.01 Ml) 5 unit SQ QHS [facility] Last Admin: 04/05/21 21:52 Dose: 5 unit Documented by: Insulin Human Lispro (Insulin Lispro 1 Unit/0.01 Ml Unit) 0 unit SQ [facility]; Protocol Last Admin: 04/06/21 08:30 Dose: Not Given Documented by: Ipratropium [place] (Ipratropium 0.06% Nasal [place] Bottle 30ml) 1 spray OG QID [facility] Last Admin: 04/06/21 08:31 Dose: Not Given Documented by: Iron Carb/Multivit/[place]/Folic Acid (Multivit,Ther Iron,Ca,Fa & Min 1 Tablet) 1 tab PO QDAY [facility] Last Admin: 04/06/21 08:50 Dose: 1 tab Documented by: Isosorbide Dinitrate (Isosorbide Dinitrate 10 Mg Tablet) 5 mg PO BID [facility] Last Admin: 04/06/21 08:51 Dose: 5 mg Documented by: Levothyroxine Sodium (Levothyroxine 125 Mcg Tablet) 125 mcg PO QAMAC [facility] Last Admin: 04/06/21 08:50 Dose: 125 mcg Documented by: Losartan Potassium (Losartan 50 Mg Tablet) 100 mg PO QDAY [facility] Last Admin: 04/06/21 08:50 Dose: 100 mg Documented by: Magnesium Oxide (Magnesium Oxide 400 Mg Tablet) 400 mg PO [facility] Methocarbamol (Methocarbamol 750 Mg Tablet) 750 mg PO TIDP PRN PRN Reason: Muscle Spasm Last Admin: 04/05/21 21:49 Dose: 750 mg Documented by: Metoprolol Succinate (Metoprolol Succinate 50 Mg Tab.Xl.24h) 100 mg PO [facility] Last Admin: 04/05/21 21:49 Dose: 100 mg Documented by: Metoprolol Succinate (Metoprolol Succinate 50 Mg Tab.Xl.24h) 50 mg PO [facility] Last Admin: 04/06/21 08:51 Dose: 50 mg Documented by: Metoprolol Tartrate (Metoprolol Tartrate 5 Mg/5 Ml Vial) 5 mg IV Q5M PRN PRN Reason: Tachyarrhythmias Nateglinide (Nateglinide 120 Mg Tablet) 120 mg PO TIDCC [facility] Last Admin: 04/06/21 08:52 Dose: 120 mg Documented by: Ondansetron HCl (Ondansetron 4 Mg/2 Ml Vial) 4 mg IV Q4HP PRN; Protocol PRN Reason: Nausea And Vomiting Coenzyme Q10 [Co Q- (10] 200 Mg Capsule)) 1 dose PO QDAY [facility] Last Admin: 04/06/21 09:37 Dose: Not Given Documented by: Collagen Tab 4 dose PO QDAY [facility] Last Admin: 04/06/21 09:37 Dose: Not Given Documented by: Lutein 20 Mg Tablet 1 dose PO QDAY [facility] Last Admin: 04/06/21 09:37 Dose: Not Given Documented by: Potassium Gluconate 600 Mg (99 Mg) Tablet 1 dose PO QDAY [facility] Last Admin: 04/06/21 09:37 Dose: Not Given Documented by: Senna (Sennosides 1 Tablet) 2 tab PO [facility] Last Admin: 04/05/21 21:49 Dose: 2 tab Documented by: Sodium Chloride (0.9 % Sodium Chloride 10 Ml Syringe) 10 ml IV Q8 [facility] Last Admin: 04/06/21 05:23 Dose: 10 ml Documented by: Sodium Chloride (0.9 % Sodium Chloride 10 Ml Syringe) 10 ml IV Q8 [facility] Last Admin: 04/06/21 05:23 Dose: Not Given Documented by: Terazosin HCl (Terazosin 5 Mg Capsule) 10 mg PO QHS [facility] Last Admin: 04/05/21 21:49 Dose: 10 mg Documented by: Zolpidem Tartrate (Zolpidem 5 Mg Tablet) 5 mg PO HSP PRN PRN Reason: Insomnia A/P Assessment and plan (1) Atrial fibrillation: Status: Chronic Qualifiers: Atrial fibrillation type: unspecified chronic Qualified Code(s): I48.20 - Chronic atrial fibrillation, unspecified; I48.2 - Chronic atrial fibrillation (2) Diabetes mellitus, type II: Status: Chronic (3) Diabetic nephropathy: Status: Chronic (4) GERD (gastroesophageal reflux disease): Status: Chronic (5) Hypertension, essential: Status: Chronic Comment: Requires multi drug treatment (6) Hypothyroidism, acquired: Status: Chronic (7) Macrocytic anemia with vitamin B12 deficiency: Status: Acute (8) CKD (chronic kidney disease), stage IV: Status: Chronic Comment: 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 CoVID pneumonia: Inpatient med surg; okay to d/c telemetry Isolation: airborne and contact Currently tolerating room air CXR every few days cbc w/ auto diff in the AM to trend WBC Remdesivir Dexamethasone Heparin q12hr Tylenol PRN fever Robitussin DM PRN cough DuoNEB NEB q4hr PRN wheezing PT OT evaluation for placement 2. Atrial fibrillation: [id number] VASc score of 5, anticoagulation therapy indicated; choose not to do full anticoagulation due to high fall risks and history of frequent falls recently Metoprolol ER for rate control Lopressor 5mg IV q5min PRN HR>120BPM 3. h/o CAD: Continue ASA, statin, Isosorbide dinitrate, and Metoprolol ER 4. Essential HTN: Continue Metoprolol ER and Losartan 5. Mixed dyslipidemia: Continue statin therapy 6. T2DM: HgA1c Insulin: scheduled and sliding scale AC HS Accu Chek AC HS Hypoglycemia protocol Diabetic diet 7. Hypothyroidism: Continue thyroid replacement therapy 8. GERD: Continue oral PPI 9. BPH: Continue Flomax and Finasteride 10. CKD4: Avoid nephrotoxic agents Okay to resume Losartan Saline lock Daily CMP to trend kidney functions GI ppx: Continue oral PPI DVT ppx: Heparin Code status: Full Prognosis: stable Disposition: inpatient med surg tele; PT OT for placement Time Spent With Patient Time: Total time spent is greater than 50% in coordination of care (as documented) at patient's floor/unit and/or counseling patient: Total time spent with greater than 50% in coordination of care (as documented) a t patient's floor/unit and/or counseling patient:: Greater than 35 minutes QUALITY VTE Deep Vein Thrombosis/Pulmonary Embolism Present on Admission: No
[2021-04-06] MEDS: TERAZOSIN 5 MG CAPSULE PO SCH (20:17)
[2021-04-06] MEDS: ACETAMINOPHEN 500 MG TABLET PO SCH (20:17)
[2021-04-06] MEDS: ATORVASTATIN 40 MG TABLET PO SCH (20:17)
[2021-04-06] MEDS: ZOLPIDEM 5 MG TABLET PO PRN (20:18)
[2021-04-06] MEDS: MAGNESIUM OXIDE 400 MG TABLET PO SCH (20:29)
[2021-04-06] MEDS: INSULIN GLARGINE, HUMAN 1 UNIT/0.01 ML SQ SCH (20:29)
[2021-04-06] MEDS: SENNOSIDES 1 TABLET PO SCH (20:30)
[2021-04-07] MEDS: 0.9 % SODIUM CHLORIDE 10 ML SYRINGE IV SCH ×6 (06:02→22:33)
[2021-04-07 07:38] LABS: Basophils # (Auto) 0 K/mcL (0.00-0.30); Basophils % (Auto) 0 % (0.0-2.0); Eosinophils # (Auto) 0 K/mcL (0.00-0.70); Eosinophils % (Auto) 0 % (0.0-7.0); Hematocrit 30.4 % (40.1-51.0); Hemoglobin 9.8 g/dL (13.7-17.5); Lymphocytes # (Auto) 0.87 K/mcL (1.50-4.80); Lymphocytes % (Auto) 19.6 % (15.5-49.0); Mean Cell Volume 105.6 fL (80.0-100.0); Mean Corpuscular HGB Conc 32.2 g/dL (31.0-36.0); Mean Platelet Volume 10.6 fL (7.4-10.4); Monocytes # (Auto) 0.46 K/mcL (0.10-0.90); Monocytes % (Auto) 10.4 % (1.0-12.0); Platelet Count 111 K/mcL (140-440); RBC 2.88 M/mcL (4.63-6.08); Red Cell Distribution Width 13.2 % (11.5-14.5); WBC 4.4 K/mcL (4.5-11.0)
[2021-04-07 07:49] LABS: ALT/SGPT 20 U/L (<40); AST/SGOT 29 U/L (<40); Albumin/Globulin Ratio 1.2 (1.0-2.3); Alkaline Phosphatase 67 U/L (39-117); Bilirubin,Total 0.3 mg/dL (0.1-1.0); Blood Urea Nitrogen 71 mg/dL (8-23); Calcium 7.9 mg/dL (8.6-10.4); Carbon Dioxide 18 mmol/L (22-30); Chloride 112 mmol/L (96-108); Globulin 2.5 gm/dL (2.2-3.7); Glomerular Filtration Rate 21; Glucose 121 mg/dL (70-105)
[2021-04-07] MEDS: FINASTERIDE 5 MG TABLET PO SCH (08:22)
[2021-04-07] MEDS: MULTIVIT,THER IRON,CA,FA & MIN 1 TABLET PO SCH (08:22)
[2021-04-07] MEDS: METOPROLOL SUCCINATE 50 MG TAB.XL.24H PO SCH ×2 (08:22→22:07)
[2021-04-07] MEDS: DOCUSATE SODIUM 100 MG CAPSULE PO SCH ×2 (08:22→22:08)
[2021-04-07] MEDS: hydrALAZINE 25 MG TABLET PO SCH (08:23)
[2021-04-07] MEDS: HYDROCHLOROTHIAZIDE 25 MG TABLET PO SCH (08:23)
[2021-04-07] MEDS: FERROUS SULFATE 325 MG TABLET PO SCH (08:23)
[2021-04-07] MEDS: LOSARTAN 50 MG TABLET PO SCH (08:23)
[2021-04-07] MEDS: ASPIRIN 81 MG TAB.CHEW PO SCH (08:23)
[2021-04-07] MEDS: NATEGLINIDE 120 MG TABLET PO SCH ×3 (08:35→16:30)
[2021-04-07] MEDS: LEVOTHYROXINE 125 MCG TABLET PO SCH (08:35)
[2021-04-07] MEDS: ISOSORBIDE DINITRATE 10 MG TABLET PO SCH ×2 (08:36→22:32)
[2021-04-07] MEDS: COENZYME Q10 200 MG PO SCH (08:36)
[2021-04-07] MEDS: COLLAGEN PO SCH (08:36)
[2021-04-07] MEDS: POTASSIUM GLUCONATE PO SCH (08:37)
[2021-04-07] MEDS: INSULIN LISPRO 1 UNIT/0.01 ML UNIT SQ SCH ×4 (08:38→22:12)
[2021-04-07] MEDS: IPRATROPIUM 0.06% NASAL SPRAY BOTTLE 30ML NAS SCH ×4 (08:38→22:08)
[2021-04-07] MEDS: REMDESIVIR 100 MG in 0.9 % SODIUM CHLORIDE 250 ML IV SCH (08:49)
[2021-04-07] MEDS: HEPARIN 5,000 UNIT/ML VIAL SQ SCH ×2 (09:40→22:08)
--- NOTE | 2021-04-07 11:05 | Internal Med Progress Note ---
SUBJECTIVE Subjective Patient information: Note initiated : 04/07/21 at 11:02 am Service Date, if different from initiated Date: [] Patient: Forrest Juarez 86 y/o M admitted on 04/05/21 for COVID/Weakness. Chief Complaint: [CoVID pneumonia] Interval history: History of present illness: Mr. Juarez is a 86 year old M history of atrial fibrillation, type 2 diabetes, chronic kidney disease stage IV, essential hypertension, mixed dyslipidemia, GERD, BPH, hypothyroidism, CAD, presenting with 3-day history of general body weakness as well as shortness of breath. He has been vaccinated with [employer] vaccine back in September 2020. He was diagnosed with Covid pneumonia 2 days ago. He presented and returned back to our ED yesterday night due to worsening symptoms of general body weakness and shortness of breath. He otherwise denies any fever or chills or diaphoresis. He denies any cough, sputum productions, or respiratory whee zings. He also denies any GI symptoms such as nausea, vomiting, diarrhea, or constipation's. Vital signs at ED presentation significant for oxygen saturation in the mid 80s on room air after which he was placed on 10 L of oxygen and his oxygen saturations went up to the mid to high 90s. He is also having atrial fibrillation with heart rate went up to 120s beats per minute. Labs significant for lack of leukocytosis with WBC 4.2. POC serum creatinine 2.6 with baseline around 2.2. Chest x-ray findings typical for Covid pneumonia. 04/06: Afebrile overnight. This morning patient tolerates room air. c/o mild SOB and nonproductive cough; denies any sputum production. Denies any respiratory wh eezing. Denies any chest pain. Denies fever, chills, or sweating. C/o general body weakness. 04/06: Afebrile overnight. This morning patient tolerates room air. Denies SOB. c/o productive cough with clear sputum production. Denies any respiratory wheezing. Denies any chest pain. Denies fever, chills, or sweating. C/o general body weakness. c/o back muscle spasm. Constitutional Vitals: Vital Signs Temp Pulse Resp BP Pulse Ox 36.0 C L 62 18 202/82 94 04/07/21 07:47 04/07/21 07:47 04/07/21 07:47 04/07/21 07:47 04/07/21 07:47 Period Temp Pulse Resp BP Sys/Zepeda Pulse Ox Last 24 Hr 36.0 C-37.6 C 60-70 16-22 150-202/60-84 92-95 Intake and Output 04/06/21 04/07/21 04/07/21 21:59 05:59 13:59 Intake Total 880 Output Total 250 350 Balance 630 -350 Weight 92.788 kg Intake & Output: Intake & Output 04/06/21 04/07/21 04/07/21 21:59 05:59 13:59 Intake Total 880 Output Total 250 350 Balance 630 -350 Weight 92.788 kg Intake: Oral 880 Output: Void Amount 250 350 Other: Meal Dinner Percent of Meal Consumed 75% Urine Appearance Clear Urine Color Bright Yellow Bright Yellow Urine Odor Normal # Voids 1 2 General appearance: cooperative and no acute distress Head Head exam: Present atraumatic and normocephalic Eye Eye exam: Present EOMI and PERRL ENT ENT exam: Present mucous membranes moist, normal exam and normal external ear exam Neck Neck exam: Present normal inspection; Absent lymphadenopathy, tenderness and thyromegaly Respiratory Respiratory exam: Present rhonchi; Absent accessory muscle use, respiratory distress and wheezes Cardiovascular Cardiovascular exam: Present irregular rhythm; Absent JVD GI/Abdominal GI/Abdominal exam: Present normal bowel sounds and soft; Absent organomegaly and tenderness Rectal Rectal exam: Present deferred Extremities Exam Extremities exam: Present full ROM, normal capillary refill and normal inspection; Absent tenderness Neurological Exam Neurological exam: Present alert, CN II-XII intact and oriented X3; Absent motor sensory deficit Psychiatric Psychiatric exam: Present normal affect and normal mood; Absent anxious and depressed Skin Skin exam: Present dry and intact OBJ DATA Labs CBC & Chem 7: 04/07/21 05:39 04/07/21 05:39 Labs: Abnormal Lab Results 04/07/21 04/07/21 04/06/21 05:39 05:39 05:30 WBC 4.4 L RBC 2.88 L Hgb 9.8 L Hct 30.4 L POC Hct MCV 105.6 H MCHC Plt Count 111 L MPV 10.6 H [place] % (Auto) Lymph # (Auto) 0.87 L POC Chloride Chloride 112 H 115 H Carbon Dioxide 18 L 18 L POC Total CO2 POC BUN BUN 71 H 63 H Creatinine 2.6 H 2.3 H POC Creatinine Glucose 121 H 109 H POC Glucose Hemoglobin A1c Calcium 7.9 L 8.0 L POC WB Ioniz Calcium Total Protein 5.5 L 5.2 L Albumin 3.0 L 3.1 L Globulin 2.1 L 04/06/21 04/05/21 04/05/21 05:30 03:35 03:35 WBC RBC 2.85 L Hgb 9.3 L Hct 30.9 L POC Hct 25 L MCV 108.4 H MCHC 30.1 L Plt Count 103 L MPV [place] % (Auto) Lymph # (Auto) 1.02 L POC Chloride 114 H Chloride Carbon Dioxide POC Total CO2 16 L POC BUN 56 H BUN Creatinine POC Creatinine 2.6 H Glucose POC Glucose 131 H Hemoglobin A1c 6.1 H Calcium POC WB Ioniz Calcium 1.15 L Total Protein Albumin Globulin 04/05/21 03:35 WBC 4.2 L RBC 2.79 L Hgb 9.0 L Hct 29.1 L POC Hct MCV 104.3 H MCHC 30.9 L Plt Count 109 L MPV [place] % (Auto) 12.1 H Lymph # (Auto) 0.87 L POC Chloride Chloride Carbon Dioxide POC Total CO2 POC BUN BUN Creatinine POC Creatinine Glucose POC Glucose Hemoglobin A1c Calcium POC WB Ioniz Calcium Total Protein Albumin Globulin Meds: Medications Acetaminophen (Acetaminophen 325 Mg Tablet) 650 mg PO Q6HP PRN; Protocol PRN Reason: Per Pain Protocol/Fever > 101 Acetaminophen (Acetaminophen 500 Mg Tablet) 1,000 mg PO QHS [facility]; Protocol Last Admin: 04/06/21 20:17 Dose: 1,000 mg Documented by: Albuterol/Ipratropium (Ipratropium/Albuterol 3 Ml Ampul.Neb) 3 ml NEB Q4HRT PRN PRN Reason: Wheezing Aspirin (Aspirin 81 Mg Tab.Chew) 81 mg PO QDAY [facility] Last Admin: 04/07/21 08:23 Dose: 81 mg Documented by: Atorvastatin Calcium (Atorvastatin 40 Mg Tablet) 40 mg PO QHS [facility] Last Admin: 04/06/21 20:17 Dose: 40 mg Documented by: Dextrose (Dextrose 50% 50 Ml Vial) 0 ml IV UD PRN PRN Reason: Hypoglycemia Diagnostic Test (Pha) (Accu-Chek 1 Each Strip) 1 each FS ACHS [facility] Last Admin: 04/07/21 08:37 Dose: Not Given Documented by: Docusate Sodium (Docusate Sodium 100 Mg Capsule) 100 mg PO BID [facility] Last Admin: 04/07/21 08:22 Dose: 100 mg Documented by: Ferrous Sulfate (Ferrous Sulfate 325 Mg Tablet) 325 mg PO Q48@0800 [facility] Last Admin: 04/07/21 08:23 Dose: 325 mg Documented by: Finasteride (Finasteride 5 Mg Tablet) 5 mg PO QDAY [facility] Last Admin: 04/07/21 08:22 Dose: 5 mg Documented by: Furosemide (Furosemide 20 Mg Tablet) 20 mg PO Q48@0900 [facility] Last Admin: 04/06/21 08:50 Dose: 20 mg Documented by: Glucose (Dextrose 31 Gm Oral.Susp) 15 gm PO PRN PRN PRN Reason: Hypoglycemia Guaifenesin (Guaifenesin/Dextromethorphan Oral Shobha) 10 ml PO Q4HP PRN PRN Reason: Cough Heparin Sodium (Porcine) (Heparin 5,000 Unit/Ml Vial) 5,000 unit SQ Q12H [facility] Last Admin: 04/07/21 09:40 Dose: 5,000 unit Documented by: Hydralazine HCl (Hydralazine 25 Mg Tablet) 25 mg PO QDAY [facility] Last Admin: 04/07/21 08:23 Dose: 25 mg Documented by: Hydralazine HCl (Hydralazine 20 Mg/Ml Vial) 10 mg IV Q4-6HP PRN PRN Reason: Hypertension Last Admin: 04/06/21 00:04 Dose: 10 mg Documented by: Hydrochlorothiazide (Hydrochlorothiazide 25 Mg Tablet) 25 mg PO QAM [facility] Last Admin: 04/07/21 08:23 Dose: 25 mg Documented by: REMDESIVIR 100 mg/ Sodium (Chloride) 250 mls @ 500 mls/hr IV DAILY [facility] Stop: 04/09/21 09:29 Last Admin: 04/07/21 08:49 Dose: 500 mls/hr Documented by: Insulin Glargine (Insulin Glargine, Human 1 Unit/0.01 Ml) 5 unit SQ QHS [facility] Last Admin: 04/06/21 20:29 Dose: 5 unit Documented by: Insulin Human Lispro (Insulin Lispro 1 Unit/0.01 Ml Unit) 0 unit SQ ACHS [facility]; Protocol Last Admin: 04/07/21 08:38 Dose: Not Given Documented by: Ipratropium [place] (Ipratropium 0.06% Nasal [address] Bottle 30ml) 1 spray OG QID [facility] Last Admin: 04/07/21 08:38 Dose: Not Given Documented by: Iron Carb/Multivit/Aviation Manager/Folic Acid (Multivit,Ther Iron,Ca,Fa & Min 1 Tablet) 1 tab PO QDAY [facility] Last Admin: 04/07/21 08:22 Dose: 1 tab Documented by: Isosorbide Dinitrate (Isosorbide Dinitrate 10 Mg Tablet) 5 mg PO BID [facility] Last Admin: 04/07/21 08:36 Dose: 5 mg Documented by: Levothyroxine Sodium (Levothyroxine 125 Mcg Tablet) [facility] Last Admin: 04/07/21 08:35 Dose: 125 mcg Documented by: Losartan Potassium (Losartan 50 Mg Tablet) 100 mg PO QDAY [facility] Last Admin: 04/07/21 08:23 Dose: 100 mg Documented by: Magnesium Oxide (Magnesium Oxide 400 Mg Tablet) 400 mg PO [facility] Last Admin: 04/06/21 20:29 Dose: 400 mg Documented by: Methocarbamol (Methocarbamol 750 Mg Tablet) 750 mg PO TIDP PRN PRN Reason: Muscle Spasm Last Admin: 04/05/21 21:49 Dose: 750 mg Documented by: Metoprolol Succinate (Metoprolol Succinate 50 Mg Tab.Xl.24h) 100 mg PO [facility] Last Admin: 04/06/21 20:17 Dose: 100 mg Documented by: Metoprolol Succinate (Metoprolol Succinate 50 Mg Tab.Xl.24h) 50 [facility] [place] [place] Admin: 04/07/21 08:22 Dose: 50 mg Documented by: Metoprolol Tartrate (Metoprolol Tartrate 5 Mg/5 Ml Vial) 5 mg IV Q5M PRN PRN Reason: Tachyarrhythmias Nateglinide (Nateglinide 120 Mg Tablet) 120 mg PO TIDCC [facility] Last Admin: 04/07/21 08:35 Dose: 120 mg Documented by: Ondansetron HCl (Ondansetron 4 Mg/2 Ml Vial) 4 mg IV Q4HP PRN; Protocol PRN Reason: Nausea And Vomiting Coenzyme Q10 [Co Q- (10] 200 Mg Capsule)) 1 dose PO QDAY [facility] Last Admin: 04/07/21 08:36 Dose: Not Given Documented by: Collagen Tab 4 dose PO QDAY [facility] Last Admin: 04/07/21 08:36 Dose: Not Given Documented by: Lutein 20 Mg Tablet 1 dose PO QDAY [facility] Last Admin: 04/07/21 08:36 Dose: Not Given Documented by: Potassium Gluconate 600 Mg (99 Mg) Tablet 1 dose PO QDAY [facility] Last Admin: 04/07/21 08:37 Dose: Not Given Documented by: Senna (Sennosides 1 Tablet) 2 tab PO HS [facility] Last Admin: 04/06/21 20:30 Dose: Not Given Documented by: Sodium Chloride (0.9 % Sodium Chloride 10 Ml Syringe) 10 ml IV Q8 [facility] Last Admin: 04/07/21 06:02 Dose: 10 ml Documented by: Sodium Chloride (0.9 % Sodium Chloride 10 Ml Syringe) 10 ml IV Q8 [facility] Last Admin: 04/07/21 06:02 Dose: Not Given Documented by: Terazosin HCl (Terazosin 5 Mg Capsule) 10 mg PO QHS [facility] Last Admin: 04/06/21 20:17 Dose: 10 mg Documented by: Zolpidem Tartrate (Zolpidem 5 Mg Tablet) 5 mg PO HSP PRN PRN Reason: Insomnia Last Admin: 04/06/21 20:18 Dose: 5 mg Documented by: A/P Assessment and plan (1) Atrial fibrillation: Status: Chronic Qualifiers: Atrial fibrillation type: unspecified chronic Qualified Code(s): I48.20 - Chronic atrial fibrillation, unspecified; I48.2 - Chronic atrial fibrillation (2) Diabetes mellitus, type II: Status: Chronic (3) Diabetic nephropathy: Status: Chronic (4) GERD (gastroesophageal reflux disease): Status: Chronic (5) Hypertension, essential: Status: Chronic Comment: Requires multi drug treatment (6) Hypothyroidism, acquired: Status: Chronic (7) Macrocytic anemia with vitamin B12 deficiency: Status: Acute (8) CKD (chronic kidney disease), stage IV: Status: Chronic Comment: 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 CoVID pneumonia: Inpatient med surg; okay to d/c telemetry Isolation: airborne and contact Currently tolerating room air CXR every few days cbc w/ auto diff in the AM to trend WBC Remdesivir X5 days d/c Dexamethasone Heparin q12hr Tylenol PRN fever Robitussin DM PRN cough DuoNEB NEB q4hr PRN wheezing PT OT evaluation for placement-->swing bed on 04/08 2. Atrial fibrillation: [id number] VASc score of 5, anticoagulation therapy indicated; choose not to do full anticoagulation due to high fall risks and history of frequent falls recently Metoprolol ER for rate control Lopressor 5mg IV q5min PRN HR>120BPM 3. h/o CAD: Continue ASA, statin, Isosorbide dinitrate, and Metoprolol ER 4. Essential HTN: Continue Metoprolol ER and Losartan 5. Mixed dyslipidemia: Continue statin therapy 6. T2DM: HgA1c Insulin: scheduled and sliding scale AC HS Accu Chek AC HS Hypoglycemia protocol Diabetic diet 7. Hypothyroidism: Continue thyroid replacement therapy 8. GERD: Continue oral PPI 9. BPH: Continue Flomax and Finasteride 10. CKD4: Avoid nephrotoxic agents Okay to resume Losartan Saline lock Daily CMP to trend kidney functions 11. Lower back muscle spasm: Flexeril 10mg PO BID PRN muscle spasm GI ppx: Continue oral PPI DVT ppx: Heparin Code status: Full Prognosis: stable Disposition: inpatient med surg tele; PT OT evaluation for placement-->swing bed on 04/08 Time Spent With Patient Time: Total time spent is greater than 50% in coordination of care (as documented) at patient's floor/unit and/or counseling patient: QUALITY VTE Deep Vein Thrombosis/Pulmonary Embolism Present on Admission: No
[2021-04-07] MEDS: hydrALAZINE 20 MG/ML VIAL IV PRN (11:45)
[2021-04-07] MEDS: CYCLOBENZAPRINE 10 MG TABLET PO PRN (13:00)
[2021-04-07] MEDS: TERAZOSIN 5 MG CAPSULE PO SCH (22:07)
[2021-04-07] MEDS: ACETAMINOPHEN 500 MG TABLET PO SCH (22:07)
[2021-04-07] MEDS: ATORVASTATIN 40 MG TABLET PO SCH (22:08)
[2021-04-07] MEDS: MAGNESIUM OXIDE 400 MG TABLET PO SCH (22:08)
[2021-04-07] MEDS: SENNOSIDES 1 TABLET PO SCH (22:08)
[2021-04-07] MEDS: INSULIN GLARGINE, HUMAN 1 UNIT/0.01 ML SQ SCH (22:32)
[2021-04-07] MEDS: guaiFENesin/DEXTROMETHORPHAN ORAL SOL PO PRN (22:32)
[2021-04-08] MEDS: 0.9 % SODIUM CHLORIDE 10 ML SYRINGE IV SCH ×6 (05:05→23:04)
[2021-04-08 06:57] LABS: Basophils # (Auto) 0.01 K/mcL (0.00-0.30); Basophils % (Auto) 0.2 % (0.0-2.0); Eosinophils # (Auto) 0.03 K/mcL (0.00-0.70); Eosinophils % (Auto) 0.7 % (0.0-7.0); Hematocrit 29.9 % (40.1-51.0); Hemoglobin 9.9 g/dL (13.7-17.5); Lymphocytes # (Auto) 1.38 K/mcL (1.50-4.80); Lymphocytes % (Auto) 31.7 % (15.5-49.0); Mean Corpuscular HGB Conc 33.1 g/dL (31.0-36.0); Mean Platelet Volume 10.6 fL (7.4-10.4); Monocytes # (Auto) 0.38 K/mcL (0.10-0.90); Monocytes % (Auto) 8.7 % (1.0-12.0); Neutrophils % (Auto) 58.7 % (38.0-78.0); Platelet Count 113 K/mcL (140-440); RBC 2.96 M/mcL (4.63-6.08); Red Cell Distribution Width 13.2 % (11.5-14.5); WBC 4.4 K/mcL (4.5-11.0)
[2021-04-08] MEDS: LEVOTHYROXINE 125 MCG TABLET PO SCH (07:14)
[2021-04-08] MEDS: NATEGLINIDE 120 MG TABLET PO SCH ×3 (07:14→16:51)
[2021-04-08] MEDS: INSULIN LISPRO 1 UNIT/0.01 ML UNIT SQ SCH ×4 (07:33→23:00)
[2021-04-08] MEDS: COLLAGEN PO SCH (08:30)
[2021-04-08] MEDS: IPRATROPIUM 0.06% NASAL SPRAY BOTTLE 30ML NAS SCH ×4 (08:30→19:58)
[2021-04-08] MEDS: COENZYME Q10 200 MG PO SCH (08:30)
[2021-04-08 09:51] LABS: ALT/SGPT 21 U/L (<40); AST/SGOT 31 U/L (<40); Albumin 3.1 gm/dL (3.2-5.2); Albumin/Globulin Ratio 1.2 (1.0-2.3); Alkaline Phosphatase 65 U/L (39-117); Bilirubin,Total 0.4 mg/dL (0.1-1.0); Blood Urea Nitrogen 70 mg/dL (8-23); Calcium 7.9 mg/dL (8.6-10.4); Carbon Dioxide 18 mmol/L (22-30); Chloride 108 mmol/L (96-108); Globulin 2.5 gm/dL (2.2-3.7); Glomerular Filtration Rate 23; Glucose 77 mg/dL (70-105)
[2021-04-08] MEDS: REMDESIVIR 100 MG in 0.9 % SODIUM CHLORIDE 250 ML IV SCH (10:13)
[2021-04-08] MEDS: FUROSEMIDE 20 MG TABLET PO SCH (10:13)
[2021-04-08] MEDS: ASPIRIN 81 MG TAB.CHEW PO SCH (10:13)
[2021-04-08] MEDS: HYDROCHLOROTHIAZIDE 25 MG TABLET PO SCH (10:13)
[2021-04-08] MEDS: LOSARTAN 50 MG TABLET PO SCH (10:14)
[2021-04-08] MEDS: FINASTERIDE 5 MG TABLET PO SCH (10:14)
[2021-04-08] MEDS: MULTIVIT,THER IRON,CA,FA & MIN 1 TABLET PO SCH (10:14)
[2021-04-08] MEDS: hydrALAZINE 25 MG TABLET PO SCH (10:15)
[2021-04-08] MEDS: HEPARIN 5,000 UNIT/ML VIAL SQ SCH ×2 (10:15→23:01)
[2021-04-08] MEDS: ISOSORBIDE DINITRATE 10 MG TABLET PO SCH ×2 (10:15→22:57)
[2021-04-08] MEDS: DOCUSATE SODIUM 100 MG CAPSULE PO SCH ×2 (10:15→19:58)
[2021-04-08] MEDS: METOPROLOL SUCCINATE 50 MG TAB.XL.24H PO SCH ×2 (10:16→23:03)
[2021-04-08] MEDS: CYCLOBENZAPRINE 10 MG TABLET PO PRN (11:36)
[2021-04-08] MEDS: guaiFENesin/DEXTROMETHORPHAN ORAL SOL PO PRN (11:36)
--- NOTE | 2021-04-08 11:49 | Internal Med Progress Note ---
SUBJECTIVE Subjective Patient information: Note initiated : 04/08/21 at 11:47 am Service Date, if different from initiated Date: [] Patient: Forrest Juarez 86 y/o M admitted on 04/05/21 for COVID/Weakness. Chief Complaint: [CoVID pneumonia] Interval history: History of present illness: Mr. Juarez is a 86 year old M history of atrial fibrillation, type 2 diabetes, chronic kidney disease stage IV, essential hypertension, mixed dyslipidemia, GERD, BPH, hypothyroidism, CAD, presenting with 3-day history of general body weakness as well as shortness of breath. He has been vaccinated with [employer] vaccine back in September 2020. He was diagnosed with Covid pneumonia 2 days ago. He presented and returned back to our ED yesterday night due to worsening symptoms of general body weakness and shortness of breath. He otherwise denies any fever or chills or diaphoresis. He denies any cough, sputum productions, or respiratory whee zings. He also denies any GI symptoms such as nausea, vomiting, diarrhea, or constipation's. Vital signs at ED presentation significant for oxygen saturation in the mid 80s on room air after which he was placed on 10 L of oxygen and his oxygen saturations went up to the mid to high 90s. He is also having atrial fibrillation with heart rate went up to 120s beats per minute. Labs significant for lack of leukocytosis with WBC 4.2. POC serum creatinine 2.6 with baseline around 2.2. Chest x-ray findings typical for Covid pneumonia. 04/06: Afebrile overnight. This morning patient tolerates room air. c/o mild SOB and nonproductive cough; denies any sputum production. Denies any respiratory wh eezing. Denies any chest pain. Denies fever, chills, or sweating. C/o general body weakness. 04/07: Afebrile overnight. This morning patient tolerates room air. Denies SOB. c/o productive cough with clear sputum production. Denies any respiratory wheezing. Denies any chest pain. Denies fever, chills, or sweating. C/o general body weakness. c/o back muscle spasm. 04/08: Afebrile overnight. This morning patient tolerates room air. Denies SOB. c/o nonproductive cough; denies sputum production. Denies any respiratory wheezing. Denies any chest pain. Denies fever, chills, or sweating. C/o general body weakness. c/o back muscle spasm. Constitutional Vitals: Vital Signs Temp Pulse Resp BP Pulse Ox 36.1 C L 57 L 18 161/67 94 04/08/21 11:40 04/08/21 11:40 04/08/21 11:40 04/08/21 11:40 04/08/21 11:40 Period Temp Pulse Resp BP Sys/Zepeda Pulse Ox Last 24 Hr 36.1 C-36.6 C 56-62 16-24 120-172/60-78 90-96 Intake and Output 04/07/21 04/08/21 04/08/21 21:59 05:59 13:59 Intake Total 240 960 490 Output Total 650 700 Balance -410 260 490 Weight 92.896 kg Intake & Output: Intake & Output 04/07/21 04/08/21 04/08/21 21:59 05:59 13:59 Intake Total 240 960 490 Output Total 650 700 Balance -410 260 490 Weight 92.896 kg Intake: IV 250 Veklury 100 mg In Sodium 250 Chloride 0.9% 250 ml @ 500 mls/ hr IV DAILY [facility] Rx#:[id number] Oral 240 960 240 Output: Void Amount 650 700 Other: Meal Dinner Breakfast Percent of Meal Consumed 100% 50% Feeding Ability Independent Independent Urine Appearance Clear Clear Urine Color Bright Yellow Bright Yellow General appearance: cooperative and no acute distress Head Head exam: Present atraumatic and normocephalic Eye Eye exam: Present EOMI and PERRL ENT ENT exam: Present mucous membranes moist, normal exam and normal external ear exam Neck Neck exam: Present normal inspection; Absent lymphadenopathy, tenderness and thyromegaly Respiratory Respiratory exam: Present rhonchi; Absent accessory muscle use, respiratory distress and wheezes Cardiovascular Cardiovascular exam: Present normal rate and rhythm; Absent JVD GI/Abdominal GI/Abdominal exam: Present normal bowel sounds and soft; Absent organomegaly and tenderness Rectal Rectal exam: Present deferred Extremities Exam Extremities exam: Present full ROM, normal capillary refill and normal inspection; Absent tenderness Neurological Exam Neurological exam: Present alert, CN II-XII intact and oriented X3; Absent motor sensory deficit Psychiatric Psychiatric exam: Present normal affect and normal mood; Absent anxious and depressed Skin Skin exam: Present dry and intact OBJ DATA Labs CBC & Chem 7: 04/08/21 05:54 04/08/21 05:54 Labs: Abnormal Lab Results 04/08/21 04/08/21 04/07/21 05:54 05:54 05:39 WBC 4.4 L RBC 2.96 L Hgb 9.9 L Hct 29.9 L MCV 101.0 H MCHC Plt Count 113 L MPV 10.6 H Lymph # (Auto) 1.38 L Chloride 112 H Carbon Dioxide 18 L 18 L BUN 70 H 71 H Creatinine 2.4 H 2.6 H Glucose 121 H Calcium 7.9 L 7.9 L Total Protein 5.6 L 5.5 L Albumin 3.1 L 3.0 L Globulin 04/07/21 04/06/21 04/06/21 05:39 05:30 05:30 WBC 4.4 L RBC 2.88 L 2.85 L Hgb 9.8 L 9.3 L Hct 30.4 L 30.9 L MCV 105.6 H 108.4 H MCHC 30.1 L Plt Count 111 L 103 L MPV 10.6 H Lymph # (Auto) 0.87 L 1.02 L Chloride 115 H Carbon Dioxide 18 L BUN 63 H Creatinine 2.3 H Glucose 109 H Calcium 8.0 L Total Protein 5.2 L Albumin 3.1 L Globulin 2.1 L Meds: Medications Acetaminophen (Acetaminophen 325 Mg Tablet) 650 mg PO Q6HP PRN; Protocol PRN Reason: Per Pain Protocol/Fever > 101 Acetaminophen (Acetaminophen 500 Mg Tablet) 1,000 mg PO QHS [place]; Protocol Last Admin: 04/07/21 22:07 Dose: 1,000 mg Documented by: Albuterol/Ipratropium (Ipratropium/Albuterol 3 Ml Ampul.Neb) 3 ml NEB Q4HRT PRN PRN Reason: Wheezing Aspirin (Aspirin 81 Mg Tab.Chew) 81 mg PO QDAY [facility] Last Admin: 04/08/21 10:13 Dose: 81 mg Documented by: Atorvastatin Calcium (Atorvastatin 40 Mg Tablet) 40 mg PO QHS [facility] Last Admin: 04/07/21 22:08 Dose: 40 mg Documented by: Cyclobenzaprine HCl (Cyclobenzaprine 10 Mg Tablet) 10 mg PO BIDP PRN PRN Reason: Muscle Spasm Last Admin: 04/08/21 11:36 Dose: 10 mg Documented by: Dextrose (Dextrose 50% 50 Ml Vial) 0 ml IV UD PRN PRN Reason: Hypoglycemia Diagnostic Test (Pha) (Accu-Chek 1 Each Strip) 1 each FS ACHS [facility] Last Admin: 04/08/21 11:32 Dose: 1 each Documented by: Docusate Sodium (Docusate Sodium 100 Mg Capsule) 100 mg PO BID [facility] Last Admin: 04/08/21 10:15 Dose: Not Given Documented by: Ferrous Sulfate (Ferrous Sulfate 325 Mg Tablet) 325 mg PO Q48@0800 [facility] Last Admin: 04/07/21 08:23 Dose: 325 mg Documented by: Finasteride (Finasteride 5 Mg Tablet) 5 mg PO QDAY [facility] Last Admin: 04/08/21 10:14 Dose: 5 mg Documented by: Furosemide (Furosemide 20 Mg Tablet) 20 mg PO Q48@0900 [facility] Last Admin: 04/08/21 10:13 Dose: 20 mg Documented by: Glucose (Dextrose 31 Gm Oral.Susp) 15 gm PO PRN PRN PRN Reason: Hypoglycemia Guaifenesin (Guaifenesin/Dextromethorphan Oral Shobha) 10 ml PO Q4HP PRN PRN Reason: Cough Last Admin: 04/08/21 11:36 Dose: 10 ml Documented by: Heparin Sodium (Porcine) (Heparin 5,000 Unit/Ml Vial) 5,000 unit SQ Q12H [facility] Last Admin: 04/08/21 10:15 Dose: 5,000 unit Documented by: Hydralazine HCl (Hydralazine 25 Mg Tablet) 25 mg PO QDAY [facility] Last Admin: 04/08/21 10:15 Dose: 25 mg Documented by: Hydralazine HCl (Hydralazine 20 Mg/Ml Vial) 10 mg IV Q4-6HP PRN PRN Reason: Hypertension Last Admin: 04/07/21 11:45 Dose: 10 mg Documented by: Hydrochlorothiazide (Hydrochlorothiazide 25 Mg Tablet) 25 mg PO QAM [facility] Last Admin: 04/08/21 10:13 Dose: 25 mg Documented by: REMDESIVIR 100 mg/ Sodium (Chloride) 250 mls @ 500 mls/hr IV DAILY [facility] Stop: 04/09/21 09:29 Last Infusion: 04/08/21 11:34 Dose: Infused Documented by: Insulin Glargine (Insulin Glargine, Human 1 Unit/0.01 Ml) 5 unit SQ QHS [facility] Last Admin: 04/07/21 22:32 Dose: Not Given Documented by: Insulin Human Lispro (Insulin Lispro 1 Unit/0.01 Ml Unit) 0 unit SQ [facility]; Protocol Last Admin: 04/08/21 07:33 Dose: Not Given Documented by: Ipratropium [place] (Ipratropium 0.06% Nasal [place] Bottle 30ml) 1 spray OG QID [facility] Last Admin: 04/08/21 08:30 Dose: Not Given Documented by: Iron Carb/Multivit/[place]/Folic Acid (Multivit,Ther Iron,Ca,Fa & Min 1 Tablet) 1 tab PO QDAY [facility] Last Admin: 04/08/21 10:14 Dose: 1 tab Documented by: Isosorbide Dinitrate (Isosorbide Dinitrate 10 Mg Tablet) 5 mg PO BID [facility] Last Admin: 04/08/21 10:15 Dose: 5 mg Documented by: Levothyroxine Sodium (Levothyroxine 125 Mcg Tablet) 125 mcg PO QAMAC [facility] Last Admin: 04/08/21 07:14 Dose: 125 mcg Documented by: Losartan Potassium (Losartan 50 Mg Tablet) 100 mg PO QDAY [facility] Last Admin: 04/08/21 10:14 Dose: 100 mg Documented by: Magnesium Oxide (Magnesium Oxide 400 Mg Tablet) 400 mg PO [facility] Last Admin: 04/07/21 22:08 Dose: 400 mg Documented by: Methocarbamol (Methocarbamol 750 Mg Tablet) 750 mg PO TIDP PRN PRN Reason: Muscle Spasm Last Admin: 04/05/21 21:49 Dose: 750 mg Documented by: Metoprolol Succinate (Metoprolol Succinate 50 Mg Tab.Xl.24h) 100 mg PO [facility] Last Admin: 04/07/21 22:07 Dose: 100 mg Documented by: Metoprolol Succinate (Metoprolol Succinate 50 Mg Tab.Xl.24h) 50 mg PO QAM [facility] Last Admin: 04/08/21 10:16 Dose: 50 mg Documented by: Metoprolol Tartrate (Metoprolol Tartrate 5 Mg/5 Ml Vial) 5 mg IV Q5M PRN PRN Reason: Tachyarrhythmias Nateglinide (Nateglinide 120 Mg Tablet) 120 mg PO TIDCC [facility] Last Admin: 04/08/21 07:14 Dose: 120 mg Documented by: Ondansetron HCl (Ondansetron 4 Mg/2 Ml Vial) 4 mg IV Q4HP PRN; Protocol PRN Reason: Nausea And Vomiting Coenzyme Q10 [Co Q- (10] 200 Mg Capsule)) 1 dose PO QDAY [facility] Last Admin: 04/08/21 08:30 Dose: Not Given Documented by: Collagen Tab 4 dose PO QDAY [facility] Last Admin: 04/08/21 08:30 Dose: Not Given Documented by: Lutein 20 Mg Tablet 1 dose PO QDAY [facility] Last Admin: 04/08/21 08:31 Dose: Not Given Documented by: Potassium Gluconate 600 Mg (99 Mg) Tablet 1 dose PO QDAY [facility] Last Admin: 04/07/21 08:37 Dose: Not Given Documented by: Senna (Sennosides 1 Tablet) 2 tab PO [facility] Last Admin: 04/07/21 22:08 Dose: 2 tab Documented by: Sodium Chloride (0.9 % Sodium Chloride 10 Ml Syringe) 10 ml IV Q8 [facility] Last Admin: 04/08/21 05:05 Dose: 10 ml Documented by: Sodium Chloride (0.9 % Sodium Chloride 10 Ml Syringe) 10 ml IV Q8 [facility] Last Admin: 04/08/21 05:05 Dose: 10 ml Documented by: Terazosin HCl (Terazosin 5 Mg Capsule) 10 mg PO QHS [facility] Last Admin: 04/07/21 22:07 Dose: 10 mg Documented by: Zolpidem Tartrate (Zolpidem 5 Mg Tablet) 5 mg PO HSP PRN PRN Reason: Insomnia Last Admin: 04/06/21 20:18 Dose: 5 mg Documented by: A/P Assessment and plan (1) Atrial fibrillation: Status: Chronic Qualifiers: Atrial fibrillation type: unspecified chronic Qualified Code(s): I48.20 - Chronic atrial fibrillation, unspecified; I48.2 - Chronic atrial fibrillation (2) Diabetes mellitus, type II: Status: Chronic (3) Diabetic nephropathy: Status: Chronic (4) GERD (gastroesophageal reflux disease): Status: Chronic (5) Hypertension, essential: Status: Chronic Comment: Requires multi drug treatment (6) Hypothyroidism, acquired: Status: Chronic (7) Macrocytic anemia with vitamin B12 deficiency: Status: Acute (8) CKD (chronic kidney disease), stage IV: Status: Chronic Comment: 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 CoVID pneumonia: Inpatient med surg Isolation: airborne and contact Currently tolerating room air CXR every few days cbc w/ auto diff in the AM to trend WBC Remdesivir X5 days Finished Dexamethasone Heparin q12hr Tylenol PRN fever Robitussin DM PRN cough DuoNEB NEB q4hr PRN wheezing PT OT evaluation for placement-->swing bed on 04/09 2. Atrial fibrillation: [id number] VASc score of 5, anticoagulation therapy indicated; choose not to do full anticoagulation due to high fall risks and history of frequent falls recently Metoprolol ER for rate control Lopressor 5mg IV q5min PRN HR>120BPM 3. h/o CAD: Continue ASA, statin, Isosorbide dinitrate, and Metoprolol ER 4. Essential HTN: Continue Metoprolol ER and Losartan 5. Mixed dyslipidemia: Continue statin therapy 6. T2DM: HgA1c Insulin: scheduled and sliding scale AC HS Accu Chek AC HS Hypoglycemia protocol Diabetic diet 7. Hypothyroidism: Continue thyroid replacement therapy 8. GERD: Continue oral PPI 9. BPH: Continue Flomax and Finasteride 10. CKD4: Avoid nephrotoxic agents Okay to resume Losartan Saline lock Daily CMP to trend kidney functions 11. Lower back muscle spasm: Flexeril 10mg PO BID PRN muscle spasm GI ppx: Continue oral PPI DVT ppx: Heparin Code status: Full Prognosis: stable Disposition: inpatient med surg; PT OT evaluation for placement-->swing bed on 04/09 Time Spent With Patient Time: Total time spent is greater than 50% in coordination of care (as documented) at patient's floor/unit and/or counseling patient: QUALITY VTE Deep Vein Thrombosis/Pulmonary Embolism Present on Admission: No
[2021-04-08] MEDS: POTASSIUM GLUCONATE PO SCH (12:25)
[2021-04-08] MEDS: hydrALAZINE 20 MG/ML VIAL IV PRN (16:55)
[2021-04-08] MEDS: INSULIN GLARGINE, HUMAN 1 UNIT/0.01 ML SQ SCH (23:00)
[2021-04-08] MEDS: ZOLPIDEM 5 MG TABLET PO PRN (23:02)
[2021-04-08] MEDS: MAGNESIUM OXIDE 400 MG TABLET PO SCH (23:02)
[2021-04-08] MEDS: TERAZOSIN 5 MG CAPSULE PO SCH (23:02)
[2021-04-08] MEDS: ATORVASTATIN 40 MG TABLET PO SCH (23:02)
[2021-04-08] MEDS: SENNOSIDES 1 TABLET PO SCH (23:03)
[2021-04-08] MEDS: ACETAMINOPHEN 500 MG TABLET PO SCH (23:03)
[2021-04-08] MEDS: METHOCARBAMOL 750 MG TABLET PO PRN (23:03)
[2021-04-09] MEDS: 0.9 % SODIUM CHLORIDE 10 ML SYRINGE IV SCH ×6 (05:08→21:58)
[2021-04-09 07:24] LABS: Basophils # (Auto) 0 K/mcL (0.00-0.30); Basophils % (Auto) 0 % (0.0-2.0); Eosinophils # (Auto) 0.08 K/mcL (0.00-0.70); Eosinophils % (Auto) 1.7 % (0.0-7.0); Hematocrit 31.2 % (40.1-51.0); Hemoglobin 10.3 g/dL (13.7-17.5); Lymphocytes # (Auto) 1.47 K/mcL (1.50-4.80); Lymphocytes % (Auto) 30.9 % (15.5-49.0); Mean Cell Volume 99.7 fL (80.0-100.0); Mean Platelet Volume 10.6 fL (7.4-10.4); Monocytes # (Auto) 0.49 K/mcL (0.10-0.90); Monocytes % (Auto) 10.3 % (1.0-12.0); Neutrophils % (Auto) 57.1 % (38.0-78.0); Platelet Count 119 K/mcL (140-440); RBC 3.13 M/mcL (4.63-6.08); Red Cell Distribution Width 12.8 % (11.5-14.5); WBC 4.8 K/mcL (4.5-11.0)
[2021-04-09 07:36] LABS: ALT/SGPT 22 U/L (<40); AST/SGOT 31 U/L (<40); Albumin 3.2 gm/dL (3.2-5.2); Albumin/Globulin Ratio 1.3 (1.0-2.3); Alkaline Phosphatase 70 U/L (39-117); Bilirubin,Total 0.4 mg/dL (0.1-1.0); Blood Urea Nitrogen 65 mg/dL (8-23); Calcium 8.1 mg/dL (8.6-10.4); Carbon Dioxide 20 mmol/L (22-30); Chloride 105 mmol/L (96-108); Globulin 2.5 gm/dL (2.2-3.7); Glomerular Filtration Rate 26; Glucose 86 mg/dL (70-105)
[2021-04-09] MEDS: INSULIN LISPRO 1 UNIT/0.01 ML UNIT SQ SCH ×4 (07:46→21:49)
[2021-04-09] MEDS: LEVOTHYROXINE 125 MCG TABLET PO SCH (07:46)
[2021-04-09] MEDS: ISOSORBIDE DINITRATE 10 MG TABLET PO SCH ×2 (09:09→21:35)
[2021-04-09] MEDS: NATEGLINIDE 120 MG TABLET PO SCH ×3 (09:10→16:29)
[2021-04-09] MEDS: HYDROCHLOROTHIAZIDE 25 MG TABLET PO SCH (09:11)
[2021-04-09] MEDS: LOSARTAN 50 MG TABLET PO SCH (09:11)
[2021-04-09] MEDS: FERROUS SULFATE 325 MG TABLET PO SCH (09:11)
[2021-04-09] MEDS: FINASTERIDE 5 MG TABLET PO SCH (09:11)
[2021-04-09] MEDS: MULTIVIT,THER IRON,CA,FA & MIN 1 TABLET PO SCH (09:11)
[2021-04-09] MEDS: ASPIRIN 81 MG TAB.CHEW PO SCH (09:11)
[2021-04-09] MEDS: hydrALAZINE 25 MG TABLET PO SCH (09:12)
[2021-04-09] MEDS: METOPROLOL SUCCINATE 50 MG TAB.XL.24H PO SCH ×2 (09:12→21:32)
[2021-04-09] MEDS: REMDESIVIR 100 MG in 0.9 % SODIUM CHLORIDE 250 ML IV SCH (09:13)
[2021-04-09] MEDS: IPRATROPIUM 0.06% NASAL SPRAY BOTTLE 30ML NAS SCH ×4 (09:31→21:41)
[2021-04-09] MEDS: COLLAGEN PO SCH (09:31)
[2021-04-09] MEDS: POTASSIUM GLUCONATE PO SCH (09:31)
[2021-04-09] MEDS: COENZYME Q10 200 MG PO SCH (09:31)
[2021-04-09] MEDS: DOCUSATE SODIUM 100 MG CAPSULE PO SCH ×2 (09:31→21:33)
[2021-04-09] MEDS: HEPARIN 5,000 UNIT/ML VIAL SQ SCH ×2 (10:06→21:36)
--- NOTE | 2021-04-09 11:25 | Internal Med Progress Note ---
SUBJECTIVE Subjective Patient information: Note initiated : 04/09/21 at 11:24 am Service Date, if different from initiated Date: [] Patient: Forrest Juarez a 86 y/o M admitted on 04/05/21 for COVID/Weakness. Chief Complaint: [CoVID] Interval history: History of present illness: Mr. Juarez is a 86 year old M history of atrial fibrillation, type 2 diabetes, chronic kidney disease stage IV, essential hypertension, mixed dyslipidemia, GERD, BPH, hypothyroidism, CAD, presenting with 3-day history of general body weakness as well as shortness of breath. He has been vaccinated with [employer] vaccine back in September 2020. He was diagnosed with Covid pneumonia 2 days ago. He presented and returned back to our ED yesterday night due to worsening symptoms of general body weakness and shortness of breath. He otherwise denies any fever or chills or diaphoresis. He denies any cough, sputum productions, or respiratory wheezings. He also denies any GI symptoms such as nausea, vomiting, diarrhea, or constipation's. Vital signs at ED presentation significant for oxygen saturation in the mid 80s on room air after which he was placed on 10 L of oxygen and his oxygen saturations went up to the mid to high 90s. He is also having atrial fibrillation with heart rate went up to 120s beats per minute. Labs significant for lack of leukocytosis with WBC 4.2. POC serum creatinine 2.6 with baseline around 2.2. Chest x-ray findings typical for Covid pneumonia. 04/06: Afebrile overnight. This morning patient tolerates room air. c/o mild SOB and nonproductive cough; denies any sputum production. Denies any respiratory wheezing. Denies any chest pain. Denies fever, chills, or sweating. C/o general body weakness. 04/07: Afebrile overnight. This morning patient tolerates room air. Denies SOB. c/o productive cough with clear sputum production. Denies any respiratory wheezing. Denies any chest pain. Denies fever, chills, or sweating. C/o general body weakness. c/o back muscle spasm. 04/08: Afebrile overnight. This morning patient tolerates room air. Denies SOB. c/o nonproductive cough; denies sputum production. Denies any respiratory wheezing. Denies any chest pain. Denies fever, chills, or sweating. C/o general body we akness. c/o back muscle spasm. 04/09: Afebrile overnight. This morning patient tolerates room air. Denies SOB. c/o nonproductive cough; denies sputum production. Denies any respiratory wheezing. Denies any chest pain. Denies fever, chills, or sweating. d/c general body weakness. d/c back muscle spasm. Constitutional Vitals: Vital Signs Temp Pulse Resp BP Pulse Ox 36.2 C 65 18 165/63 93 04/09/21 07:49 04/09/21 07:49 04/09/21 07:49 04/09/21 07:49 04/09/21 07:49 Period Temp Pulse Resp BP Sys/Zepeda Pulse Ox Last 24 Hr 36.1 C-36.6 C 57-75 18-21 150-180/60-77 93-97 Intake and Output 04/08/21 04/09/21 04/09/21 21:59 05:59 13:59 Intake Total 250 Output Total 650 700 Balance -650 -700 250 Weight 98.883 kg Intake & Output: Intake & Output 04/08/21 04/09/21 04/09/21 21:59 05:59 13:59 Intake Total 250 Output Total 650 700 Balance -650 -700 250 Weight 98.883 kg Intake: IV 250 Veklury 100 mg In Sodium 250 Chloride 0.9% 250 ml @ 500 mls/ hr IV DAILY [facility] Rx#:[id number] Output: Void Amount 650 700 Other: Urine Appearance Clear Clear Urine Color Bright Yellow Bright Yellow Urine Odor Normal Normal General appearance: cooperative and no acute distress Head Head exam: Present atraumatic and normocephalic Eye Eye exam: Present EOMI and PERRL ENT ENT exam: Present mucous membranes moist, normal exam and normal external ear exam Neck Neck exam: Present normal inspection; Absent lymphadenopathy, tenderness and thyromegaly Respiratory Respiratory exam: Present rhonchi; Absent accessory muscle use, respiratory distress and wheezes Cardiovascular Cardiovascular exam: Present irregular rhythm; Absent JVD GI/Abdominal GI/Abdominal exam: Present normal bowel sounds and soft; Absent organomegaly and tenderness Rectal Rectal exam: Present deferred Extremities Exam Extremities exam: Present full ROM, normal capillary refill and normal inspection; Absent tenderness Neurological Exam Neurological exam: Present alert, CN II-XII intact and oriented X3; Absent motor sensory deficit Psychiatric Psychiatric exam: Present normal affect and normal mood; Absent anxious and depressed Skin Skin exam: Present dry and intact OBJ DATA Labs CBC & Chem 7: 04/09/21 05:00 04/09/21 06:13 Labs: Abnormal Lab Results 04/09/21 04/09/21 04/08/21 06:13 05:00 05:54 WBC RBC 3.13 L Hgb 10.3 L Hct 31.2 L MCV Plt Count 119 L MPV 10.6 H Lymph # (Auto) 1.47 L Chloride Carbon Dioxide 20 L 18 L BUN 65 H 70 H Creatinine 2.2 H 2.4 H Glucose Calcium 8.1 L 7.9 L Total Protein 5.7 L 5.6 L Albumin 3.1 L 04/08/21 04/07/21 04/07/21 05:54 05:39 05:39 WBC 4.4 L 4.4 L RBC 2.96 L 2.88 L Hgb 9.9 L 9.8 L Hct 29.9 L 30.4 L MCV 101.0 H 105.6 H Plt Count 113 L 111 L MPV 10.6 H 10.6 H Lymph # (Auto) 1.38 L 0.87 L Chloride 112 H Carbon Dioxide 18 L BUN 71 H Creatinine 2.6 H Glucose 121 H Calcium 7.9 L Total Protein 5.5 L Albumin 3.0 L Meds: Medications Acetaminophen (Acetaminophen 325 Mg Tablet) 650 mg PO Q6HP PRN; Protocol PRN Reason: Per Pain Protocol/Fever > 101 Acetaminophen (Acetaminophen 500 Mg Tablet) 1,000 mg PO QHS [facility]; Protocol Last Admin: 04/08/21 23:03 Dose: 1,000 mg Documented by: Albuterol/Ipratropium (Ipratropium/Albuterol 3 Ml Ampul.Neb) 3 ml NEB Q4HRT PRN PRN Reason: Wheezing Aspirin (Aspirin 81 Mg Tab.Chew) 81 mg PO QDAY [facility] Last Admin: 04/09/21 09:11 Dose: 81 mg Documented by: Atorvastatin Calcium (Atorvastatin 40 Mg Tablet) 40 mg PO QHS [facility] Last Admin: 04/08/21 23:02 Dose: 40 mg Documented by: Cyclobenzaprine HCl (Cyclobenzaprine 10 Mg Tablet) 10 mg PO BIDP PRN PRN Reason: Muscle Spasm Last Admin: 04/08/21 11:36 Dose: 10 mg Documented by: Dextrose (Dextrose 50% 50 Ml Vial) 0 ml IV UD PRN PRN Reason: Hypoglycemia Diagnostic Test (Pha) (Accu-Chek 1 Each Strip) 1 each FS ACHS [facility] Last Admin: 04/09/21 07:46 Dose: 1 each Documented by: Docusate Sodium (Docusate Sodium 100 Mg Capsule) 100 mg PO BID [facility] Last Admin: 04/09/21 09:31 Dose: Not Given Documented by: Ferrous Sulfate (Ferrous Sulfate 325 Mg Tablet) 325 mg PO Q48@0800 [facility] Last Admin: 04/09/21 09:11 Dose: 325 mg Documented by: Finasteride (Finasteride 5 Mg Tablet) 5 mg PO QDAY [facility] Last Admin: 04/09/21 09:11 Dose: 5 mg Documented by: Furosemide (Furosemide 20 Mg Tablet) 20 mg PO Q48@0900 [facility] Last Admin: 04/08/21 10:13 Dose: 20 mg Documented by: Glucose (Dextrose 31 Gm Oral.Susp) 15 gm PO PRN PRN PRN Reason: Hypoglycemia Guaifenesin (Guaifenesin/Dextromethorphan Oral Shobha) 10 ml PO Q4HP PRN PRN Reason: Cough Last Admin: 04/08/21 11:36 Dose: 10 ml Documented by: Heparin Sodium (Porcine) (Heparin 5,000 Unit/Ml Vial) 5,000 unit SQ Q12H [facility] Last Admin: 04/09/21 10:06 Dose: 5,000 unit Documented by: Hydralazine HCl (Hydralazine 25 Mg Tablet) 25 mg PO QDAY [facility] Last Admin: 04/09/21 09:12 Dose: 25 mg Documented by: Hydralazine HCl (Hydralazine 20 Mg/Ml Vial) 10 mg IV Q4-6HP PRN PRN Reason: Hypertension Last Admin: 04/08/21 16:55 Dose: 10 mg Documented by: Hydrochlorothiazide (Hydrochlorothiazide 25 Mg Tablet) 25 mg PO QAM [facility] Last Admin: 04/09/21 09:11 Dose: 25 mg Documented by: Insulin Glargine (Insulin Glargine, Human 1 Unit/0.01 Ml) 5 unit SQ QHS [facility] Last Admin: 04/08/21 23:00 Dose: Not Given Documented by: Insulin Human Lispro (Insulin Lispro 1 Unit/0.01 Ml Unit) 0 unit SQ [facility]; Protocol Last Admin: 04/09/21 07:46 Dose: Not Given Documented by: Ipratropium [place] (Ipratropium 0.06% Nasal [place] Bottle 30ml) 1 spray OG QID [facility] Last Admin: 04/09/21 09:31 Dose: Not Given Documented by: Iron Carb/Multivit/Filter Washer And Presser/Folic Acid (Multivit,Ther Iron,Ca,Fa & Min 1 Tablet) 1 tab PO QDAY [facility] Last Admin: 04/09/21 09:11 Dose: 1 tab Documented by: Isosorbide Dinitrate (Isosorbide Dinitrate 10 Mg Tablet) 5 mg PO BID [facility] Last Admin: 04/09/21 09:09 Dose: 5 mg Documented by: Levothyroxine Sodium ([facility]othyroxine 125 Mcg Tablet) [facility] Admin: 04/09/21 07:46 Dose: 125 mcg Documented by: Losartan Potassium (Losartan 50 Mg Tablet) 100 mg PO QDAY [facility] Last Admin: 04/09/21 09:11 Dose: 100 mg Documented by: Magnesium Oxide (Magnesium Oxide 400 Mg Tablet) 400 mg PO [facility] Last Admin: 04/08/21 23:02 Dose: 400 mg Documented by: Methocarbamol (Methocarbamol 750 Mg Tablet) 750 mg PO TIDP PRN PRN Reason: Muscle Spasm Last Admin: 04/08/21 23:03 Dose: 750 mg Documented by: Metoprolol Succinate (Metoprolol Succinate 50 Mg Tab.Xl.24h) 100 mg PO [facility] Last Admin: 04/08/21 23:03 Dose: 100 mg Documented by: Metoprolol Succinate (Metoprolol Succinate 50 Mg Tab.Xl.24h) [facility] Last Admin: 04/09/21 09:12 Dose: 50 mg Documented by: Metoprolol Tartrate (Metoprolol Tartrate 5 Mg/5 Ml Vial) 5 mg IV Q5M PRN PRN Reason: Tachyarrhythmias Nateglinide (Nateglinide 120 Mg Tablet) 120 mg PO TIDCC [facility] Last Admin: 04/09/21 09:10 Dose: 120 mg Documented by: Ondansetron HCl (Ondansetron 4 Mg/2 Ml Vial) 4 mg IV Q4HP PRN; Protocol PRN Reason: Nausea And Vomiting Coenzyme Q10 [Co Q- (10] 200 Mg Capsule)) 1 dose PO QDAY [facility] Last Admin: 04/09/21 09:31 Dose: Not Given Documented by: Collagen Tab 4 dose PO QDAY [facility] Last Admin: 04/09/21 09:31 Dose: Not Given Documented by: Lutein 20 Mg Tablet 1 dose PO QDAY [facility] Last Admin: 04/09/21 09:31 Dose: Not Given Documented by: Potassium Gluconate 600 Mg (99 Mg) Tablet 1 dose PO QDAY [facility] Last Admin: 04/09/21 09:31 Dose: Not Given Documented by: Senna (Sennosides 1 Tablet) 2 tab PO HS [facility] Last Admin: 04/08/21 23:03 Dose: Not Given Documented by: Sodium Chloride (0.9 % Sodium Chloride 10 Ml Syringe) 10 ml IV Q8 [facility] Last Admin: 04/09/21 05:08 Dose: Not Given Documented by: Sodium Chloride (0.9 % Sodium Chloride 10 Ml Syringe) 10 ml IV Q8 [facility] Last Admin: 04/09/21 05:08 Dose: Not Given Documented by: Terazosin HCl (Terazosin 5 Mg Capsule) 10 mg PO QHS [facility] Last Admin: 04/08/21 23:02 Dose: 10 mg Documented by: Zolpidem Tartrate (Zolpidem 5 Mg Tablet) 5 mg PO HSP PRN PRN Reason: Insomnia Last Admin: 04/08/21 23:02 Dose: 5 mg Documented by: A/P Assessment and plan (1) Atrial fibrillation: Status: Chronic Qualifiers: Atrial fibrillation type: unspecified chronic Qualified Code(s): I48.20 - Chronic atrial fibrillation, unspecified; I48.2 - Chronic atrial fibrillation (2) Diabetes mellitus, type II: Status: Chronic (3) Diabetic nephropathy: Status: Chronic (4) GERD (gastroesophageal reflux disease): Status: Chronic (5) Hypertension, essential: Status: Chronic Comment: Requires multi drug treatment (6) Hypothyroidism, acquired: Status: Chronic (7) Macrocytic anemia with vitamin B12 deficiency: Status: Acute (8) CKD (chronic kidney disease), stage IV: Status: Chronic Comment: 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 CoVID pneumonia: Inpatient med surg Isolation: airborne and contact Currently tolerating room air CXR every few days cbc w/ auto diff in the AM to trend WBC Remdesivir X5 days Finished Dexamethasone Heparin q12hr Tylenol PRN fever Robitussin DM PRN cough DuoNEB NEB q4hr PRN wheezing PT OT evaluation for placement-->swing bed on 04/10 2. Atrial fibrillation: [id number] VASc score of 5, anticoagulation therapy indicated; choose not to do full anticoagulation due to high fall risks and history of frequent falls recently Metoprolol ER for rate control Lopressor 5mg IV q5min PRN HR>120BPM 3. h/o CAD: Continue ASA, statin, Isosorbide dinitrate, and Metoprolol ER 4. Essential HTN: Continue Metoprolol ER and Losartan 5. Mixed dyslipidemia: Continue statin therapy 6. T2DM: HgA1c Insulin: scheduled and sliding scale AC HS Accu Chek AC HS Hypoglycemia protocol Diabetic diet 7. Hypothyroidism: Continue thyroid replacement therapy 8. GERD: Continue oral PPI 9. BPH: Continue Flomax and Finasteride 10. CKD4: Avoid nephrotoxic agents Okay to resume Losartan Saline lock Daily CMP to trend kidney functions 11. Lower back muscle spasm: Flexeril 10mg PO BID PRN muscle spasm GI ppx: Continue oral PPI DVT ppx: Heparin Code status: Full Prognosis: stable Disposition: inpatient med surg; PT OT evaluation for placement-->swing bed on 04/10 Time Spent With Patient Time: Total time spent is greater than 50% in coordination of care (as documented) at patient's floor/unit and/or counseling patient: QUALITY VTE Deep Vein Thrombosis/Pulmonary Embolism Present on Admission: No
[2021-04-09] MEDS ORDERED: KETOROLAC 15 MG/ML VIAL IV PRN (15:45)
[2021-04-09] MEDS: guaiFENesin/DEXTROMETHORPHAN ORAL SOL PO PRN (16:40)
[2021-04-09] MEDS: ATORVASTATIN 40 MG TABLET PO SCH (21:32)
[2021-04-09] MEDS: SENNOSIDES 1 TABLET PO SCH (21:32)
[2021-04-09] MEDS: ACETAMINOPHEN 500 MG TABLET PO SCH (21:33)
[2021-04-09] MEDS: MAGNESIUM OXIDE 400 MG TABLET PO SCH (21:33)
[2021-04-09] MEDS: TERAZOSIN 5 MG CAPSULE PO SCH (21:33)
[2021-04-09] MEDS: INSULIN GLARGINE, HUMAN 1 UNIT/0.01 ML SQ SCH (21:49)
[2021-04-10] MEDS: guaiFENesin/DEXTROMETHORPHAN ORAL SOL PO PRN (00:14)
[2021-04-10] MEDS: 0.9 % SODIUM CHLORIDE 10 ML SYRINGE IV SCH (08:37)
[2021-04-10] MEDS: FINASTERIDE 5 MG TABLET PO SCH (08:38)
[2021-04-10] MEDS: LOSARTAN 50 MG TABLET PO SCH (08:38)
[2021-04-10] MEDS: hydrALAZINE 25 MG TABLET PO SCH (08:38)
[2021-04-10] MEDS: MULTIVIT,THER IRON,CA,FA & MIN 1 TABLET PO SCH (08:38)
[2021-04-10] MEDS: FUROSEMIDE 20 MG TABLET PO SCH (08:39)
[2021-04-10] MEDS: DOCUSATE SODIUM 100 MG CAPSULE PO SCH (08:39)
[2021-04-10] MEDS: HYDROCHLOROTHIAZIDE 25 MG TABLET PO SCH (08:40)
[2021-04-10] MEDS: ISOSORBIDE DINITRATE 10 MG TABLET PO SCH (08:40)
[2021-04-10] MEDS: INSULIN LISPRO 1 UNIT/0.01 ML UNIT SQ SCH ×2 (08:40→11:54)
[2021-04-10] MEDS: LEVOTHYROXINE 125 MCG TABLET PO SCH (08:40)
[2021-04-10] MEDS: METOPROLOL SUCCINATE 50 MG TAB.XL.24H PO SCH (08:40)
[2021-04-10] MEDS: ASPIRIN 81 MG TAB.CHEW PO SCH (08:40)
[2021-04-10 08:43] LABS: ALT/SGPT 21 U/L (<40); AST/SGOT 30 U/L (<40); Albumin 3.1 gm/dL (3.2-5.2); Albumin/Globulin Ratio 1.5 (1.0-2.3); Alkaline Phosphatase 66 U/L (39-117); Bilirubin,Total 0.3 mg/dL (0.1-1.0); Blood Urea Nitrogen 70 mg/dL (8-23); Calcium 7.9 mg/dL (8.6-10.4); Carbon Dioxide 18 mmol/L (22-30); Chloride 110 mmol/L (96-108); Globulin 2.1 gm/dL (2.2-3.7); Glomerular Filtration Rate 26; Glucose 102 mg/dL (70-105)
[2021-04-10 09:18] LABS: Basophils # (Auto) 0.01 K/mcL (0.00-0.30); Basophils % (Auto) 0.2 % (0.0-2.0); Eosinophils # (Auto) 0.14 K/mcL (0.00-0.70); Eosinophils % (Auto) 3.2 % (0.0-7.0); Hemoglobin 9.3 g/dL (13.7-17.5); Lymphocytes # (Auto) 1.07 K/mcL (1.50-4.80); Lymphocytes % (Auto) 24.8 % (15.5-49.0); Mean Cell Volume 103.9 fL (80.0-100.0); Mean Corpuscular HGB Conc 32.1 g/dL (31.0-36.0); Mean Platelet Volume 10.7 fL (7.4-10.4); Monocytes # (Auto) 0.55 K/mcL (0.10-0.90); Monocytes % (Auto) 12.7 % (1.0-12.0); Neutrophils % (Auto) 59.1 % (38.0-78.0); Platelet Count 128 K/mcL (140-440); RBC 2.79 M/mcL (4.63-6.08); WBC 4.3 K/mcL (4.5-11.0)
[2021-04-10] MEDS: COLLAGEN PO SCH (09:25)
[2021-04-10] MEDS: IPRATROPIUM 0.06% NASAL SPRAY BOTTLE 30ML NAS SCH ×2 (09:25→12:05)
[2021-04-10] MEDS: COENZYME Q10 200 MG PO SCH (09:25)
[2021-04-10] MEDS: POTASSIUM GLUCONATE PO SCH (09:26)
[2021-04-10] MEDS: NATEGLINIDE 120 MG TABLET PO SCH ×2 (09:51→11:54)
[2021-04-10] MEDS: HEPARIN 5,000 UNIT/ML VIAL SQ SCH (09:52)
[2021-04-10] MEDS: CYCLOBENZAPRINE 10 MG TABLET PO PRN (09:52)
--- NOTE | 2021-04-10 10:31 | Discharge Summary ---
Discharge Provider Provider Patient information: Note initiated : 04/10/21 at 10:26 am Service Date, if different from initiated Date: [] Patient: Forrest Juarez 86 y/o M admitted on 04/05/21 for COVID/Weakness. Chief Complaint: [CoVID pneumonia] Date of admission: 04/05/21 06:30 Discharge date: 04/10/21 Primary care physician: Matteo Ferreira Consults: 04/05/21 Consult to Physician [CONS] Stat Comment: Consulting Provider: Troy Camara Reason For Exam: Physician to Consult Discharge Meds Discharge Medications Home Medications blood sugar diagnostic 03/25/15 [History Confirmed 03/06/21 Last Taken ] cinnamon bark 500 mg capsule 03/25/15 [History Confirmed 03/06/21 Last Taken 03/07/19] levothyroxine 125 mcg tablet 125 mcg PO QDAY 08/30/15 [History Confirmed 04/05/21 Last Taken 03/07/19] isosorbide dinitrate 5 mg tablet 5 mg PO BID tab 11/23/15 [History Confirmed 03/06/21 Last Taken 03/07/19] lutein 20 mg tablet 20 mg PO QDAY 11/23/15 [History Confirmed 03/06/21 Last Taken 03/07/19] multivitamin,az-ihso-fyhlxluz 1 tab PO QDAY 11/23/15 [History Confirmed 03/06/21 Last Taken 03/07/19] saw palm 160 mg-vit E 100 unit-selen 100 psa-gjpp-fpapcs-pygeum tablet tab PO QDAY tab 08/27/16 [History Confirmed 03/06/21 Last Taken 03/07/19] methocarbamol 750 mg tablet 750 mg PO TID PRN 30 Days #30 tab 01/28/17 [History Confirmed 04/05/21 Last Taken 03/07/19 21:00] insulin degludec 100 unit/mL (3 mL) subcutaneous pen 5 unit SUB-Q QHS ml 03/04/18 [History Confirmed 04/05/21 Last Taken 03/07/19 21:00] coenzyme Q10 200 mg capsule 200 mg PO QDAY 09/03/18 [History Confirmed 03/06/21 Last Taken 03/07/19] docusate sodium 50 mg capsule 50 mg PO QDAY 09/03/18 [History Confirmed 04/05/21 Last Taken 03/07/19] grape seed extract 50 mg capsule 50 mg PO QDAY cap 09/03/18 [History Confirmed 03/06/21 Last Taken 03/07/19] atorvastatin 40 mg tablet 40 mg PO QHS 10/29/19 [History Confirmed 04/05/21 Last Taken Unknown] acetaminophen 500 mg tablet 1,000 mg PO QHS tab 03/03/20 [History Confirmed 03/18 Last Taken Unknown] finasteride 5 mg tablet 5 mg PO QDAY #90 tab 04/18/20 [Rx Confirmed 04/05/21 Last Taken Unknown] Vipin Contour Next Test in Vitro Strip NOT APPLICABLE .4XD 05/17/20 [History Confirmed 03/06/21 Last Taken Unknown] Carefine Pen [place] 32G X 4MM TRANSDERMAL .daily 05/17/20 [History Confirmed 03/06/21 Last Taken Unknown] One Touch Verio In Vitro Strip NOT APPLICABLE .2XD 05/17/20 [History Confirmed 03/06/21 Last Taken Unknown] collagen 4 tab PO QDAY 05/31/20 [History Confirmed 03/06/21 Last Taken Unknown] ferrous sulfate 27 mg iron tablet 27 mg PO Q OTHER DAY tab 05/31/20 [History Confirmed 03/06/21 Last Taken Unknown] potassium gluconate 600 mg (99 mg) tablet 600 mg PO QDAY tab 05/31/20 [History Confirmed 03/06/21 Last Taken Unknown] terazosin 10 mg capsule 10 mg PO QHS 90 Days #90 cap 05/31/20 [History Confirmed 04/05/21 Last Taken Unknown] l-argine PO QDAY 06/09/20 [History Confirmed 03/06/21 Last Taken Unknown] nateglinide 120 mg tablet 120 mg PO TIDCC tab 06/09/20 [History Confirmed 04/05/21 Last Taken Unknown] furosemide 20 mg tablet 20 mg PO Q OTHER DAY tab 08/29/20 [History Confirmed 04/05/21 Last Taken Unknown] metoprolol succinate 100 mg tablet,extended release 24 hr See Rx Instructions .ROUTE .COMPLEX tab 08/29/20 [History Confirmed 04/05/21 Last Taken Unknown] magnesium 200 mg tablet 400 mg PO HS tab 12/27/20 [History Confirmed 03/06/21 Last Taken Unknown] aspirin 81 mg tablet,delayed release 81 mg PO QDAY 03/06/21 [History Confirmed 04/05/21 Last Taken Unknown] hydrochlorothiazide 25 mg tablet 25 mg PO QAM 03/06/21 [History Confirmed 04/05/21 Last Taken Unknown] losartan 100 mg tablet 100 mg PO QDAY 03/06/21 [History Confirmed 04/05/21 Last Taken Unknown] hydralazine 25 mg PO QDAY 04/05/21 [History Confirmed 04/05/21 Last Taken Unknown] ipratropium bromide 1 spray INTRANASAL QID 04/05/21 [History Confirmed 04/05/21 Last Taken Unknown] cyclobenzaprine 10 mg PO BIDP PRN #10 tab 04/10/21 [Rx Last Taken Unknown] dextromethorphan-guaifenesin [Robafen DM Cough] 10 ml PO Q4HP PRN #500 ml 04/10/21 [Rx Last Taken Unknown] COURSE Hospital Course Hospital course: Patient was admitted on April 05, 2021 for Covid pneumonia. Covid specific treatments including remdesivir, dexamethasone, anticoagulations in terms of Lovenox, together with supplemental oxygen as needed were all provided. By April 10, 2021, patient has been afebrile for more than 24 hours, tolerating room air, any leukocytosis resolved, and otherwise reached clinical stability. It was determined by nursing bedside evaluation that patient's has gained back his stream and deemed appropriate to be discharged home with home health. 1 to 2 weeks PCP appointment made for the patient. All questions were answered prior to patient being physically discharged. Discharge diagnosis: CoVID pneumonia Time Spent with Patient Time attestation: Total time spent providing and/or coordinating discharge services: Patient was admitted on April 05, 2021 for Covid pneumonia. Covid specific treatments including remdesivir, dexamethasone, anticoagulations in terms of Lovenox, together with supplemental oxygen as needed were all provided. By April 10, 2021, patient has been afebrile for more than 24 hours, tolerating room air, any leukocytosis resolved, and otherwise reached clinical stability. It was determined by nursing bedside evaluation that patient's has gained back his stream and deemed appropriate to be discharged home with home health. 1 to 2 weeks PCP appointment made for the patient. All questions were answered prior to patient being physically discharged. EXAM Constitutional Vitals: Temp Pulse Resp BP Pulse Ox 36.1 C L 60 20 148/76 92 09/13/21 08:00 04/10/21 08:00 04/10/21 08:00 04/10/21 08:00 04/10/21 08:00 General appearance: cooperative and no acute distress Head Head exam: Present atraumatic and normocephalic Eye Eye exam: Present EOMI and PERRL ENT ENT exam: Present mucous membranes moist, normal exam and normal external ear exam Neck Neck exam: Present normal inspection; Absent lymphadenopathy, tenderness and thyromegaly Respiratory Respiratory exam: Absent accessory muscle use, respiratory distress and wheezes Cardiovascular Cardiovascular exam: Present normal rate and rhythm; Absent JVD GI/Abdominal GI/Abdominal exam: Present normal bowel sounds and soft; Absent organomegaly and tenderness Rectal Rectal exam: Present deferred Extremities Exam Extremities exam: Present full ROM, normal capillary refill and normal inspe ction; Absent tenderness Neurological Exam Neurological exam: Present alert, CN II-XII intact and oriented X3; Absent motor sensory deficit Psychiatric Psychiatric exam: Present normal affect and normal mood; Absent anxious and depressed Skin Skin exam: Present dry and intact Discharge Data Data Completed and Pending Labs on day of discharge: Labs from last 24 hours 04/10/21 04/10/21 06:26 06:26 WBC 4.3 L RBC 2.79 L Hgb 9.3 L Hct 29.0 L MCV 103.9 H MCH 33.3 MCHC 32.1 RDW 13.0 Plt Count 128 L MPV 10.7 H Neut % (Auto) 59.1 Lymph % (Auto) 24.8 [place] % (Auto) 12.7 H Eos % (Auto) 3.2 Baso % (Auto) 0.2 Lymph # (Auto) 1.07 L [place] # (Auto) 0.55 Eos # (Auto) 0.14 Baso # (Auto) 0.01 Absolute Neutrophils 2.55 Sodium 142 Potassium 4.2 Chloride 110 H Carbon Dioxide 18 L Anion Gap 14.0 BUN 70 H Creatinine 2.2 H GFR Calculation 26 Glucose 102 Calcium 7.9 L Magnesium 2.3 Total Bilirubin 0.3 AST 30 ALT 21 Alkaline Phosphatase 66 Total Protein 5.2 L Albumin 3.1 L Globulin 2.1 L Albumin/Globulin Ratio 1.5 Discharge Plan Patient/Caregiver Discharge Instructions Activity: increase activity as tolerated Diet: Consistent Carbohydrate Prescriptions: New cyclobenzaprine 10 mg Tablet 10 mg PO BIDP PRN (Reason: Muscle Spasm) Qty: 10 RF: 0 dextromethorphan-guaifenesin [Robafen DM Cough] 10-100 mg/5 mL Liquid 10 ml PO Q4HP PRN (Reason: Cough) Qty: 500 RF: 0 Continued finasteride 5 mg tablet 5 mg PO QDAY Qty: 90 RF: 1 (DME) blood sugar diagnostic strip See Dose Instructions .ROUTE .MEDSUPPLY RF: 0 (DME) cinnamon bark 500 mg capsule See Dose Instructions .ROUTE .MEDSUPPLY RF: 0 collagen 4 tab PO QDAY RF: 0 potassium gluconate 600 mg (99 mg) tablet 600 mg PO QDAY RF: 0 nateglinide 120 mg tablet 120 mg PO TIDCC RF: 0 Carefine Pen [place] 32G X 4MM transdermal .daily RF: 0 Vipin Contour Next Test in Vitro Strip Not Applicable .4XD RF: 0 One Touch Verio In Vitro Strip Not Applicable .2XD RF: 0 magnesium 200 mg tablet 400 mg PO HS RF: 0 levothyroxine 125 mcg tablet 125 mcg PO QDAY RF: 0 lutein 20 mg tablet 20 mg PO QDAY RF: 0 multivitamin,eb-pfva-swyxkxei [Complete Multivitamin] tablet 1 tab PO QDAY RF: 0 isosorbide dinitrate 5 mg tablet 5 mg PO BID RF: 0 saw-vit E-sod djg-ahn-ltuv-pyg [Prostate Health] 160-100-100 mg-unit-mcg tablet PO QDAY RF: 0 methocarbamol 750 mg tablet 750 mg PO TID PRN (Reason: Muscle Spasm) 30 Days Qty: 30 RF: 0 insulin degludec [Tresiba FlexTouch U-100] 100 unit/mL (3 mL) insulin pen 5 unit SUB-Q QHS RF: 0 grape seed extract [Grape Seed] 50 mg capsule 50 mg PO QDAY RF: 0 coenzyme Q10 [Co Q-10] 200 mg capsule 200 mg PO QDAY RF: 0 Stool Softener 50 mg capsule 50 mg PO QDAY RF: 0 acetaminophen [Tylenol Extra Strength] 500 mg tablet 1,000 mg PO QHS RF: 0 metoprolol succinate 100 mg tablet extended release 24 hr See Rx Instructions .ROUTE .COMPLEX RF: 0 ferrous sulfate 27 mg iron tablet 27 mg PO Q OTHER DAY RF: 0 atorvastatin [Lipitor] 40 mg tablet 40 mg PO QHS RF: 0 terazosin 10 mg capsule 10 mg PO QHS 90 Days Qty: 90 RF: 0 furosemide 20 mg tablet 20 mg PO Q OTHER DAY RF: 0 losartan 100 mg tablet 100 mg PO QDAY RF: 0 hydrochlorothiazide 25 mg tablet 25 mg PO QAM RF: 0 aspirin [Adult Aspirin Regimen] 81 mg tablet,delayed release (DR/EC) 81 mg PO QDAY RF: 0 l-argine PO QDAY RF: 0 hydralazine 25 mg tablet 25 mg PO QDAY RF: 0 ipratropium bromide 42 mcg (0.06 %) spray,non-aerosol 1 spray INTRANASAL QID RF: 0 Follow Up Plan Follow up with: Matteo Ferreira DO [Primary Care Provider] - Patient Disposition: Home Health Service Rehab Potential: Good I certify that the patient requires SNF services: No Overall status at discharge: patient is back to baseline Discharge Orders: Discharge Order (Routine); Ordered 04/10/21 Ordered By: Troy TALBOT VTE Deep Vein Thrombosis/Pulmonary Embolism Present on Admission: No
== END 2021-04-10 14:20 | disposition home health service (06) | DRG 177 ==
LOC: ED 03:23 → ICU 06:30 → MEDSUR 04-06 13:25
PROVIDERS: ADMIT Internal Medicine; ATTEND Internal Medicine

== ENCOUNTER 2024-02-01 18:29 | Inpatient (IN) ==
[2024-02-01 20:25] LABS: Basophils # (Auto) 0.07 K/mcL (0.00-0.30); Basophils % (Auto) 0.5 % (0.0-2.0); Eosinophils # (Auto) 0 K/mcL (0.00-0.70); Eosinophils % (Auto) 0 % (0.0-7.0); Hemoglobin 8.8 g/dL (13.7-17.5); Lymphocytes # (Auto) 0.44 K/mcL (1.50-4.80); Mean Cell Volume 107.1 fL (80.0-100.0); Mean Corpuscular HGB Conc 32.6 g/dL (31.0-36.0); Mean Platelet Volume 9.5 fL (8.8-12.5); Monocytes # (Auto) 1.18 K/mcL (0.10-0.90); Monocytes % (Auto) 8.1 % (1.0-12.0); Neutrophils % (Auto) 86.3 % (38.0-78.0); Platelet Count 172 K/mcL (140-440); RBC 2.52 M/mcL (4.63-6.08); Red Cell Distribution Width 13.9 % (11.5-14.5); WBC 14.5 K/mcL (4.5-11.0)
[2024-02-01] MEDS: 0.9 % SODIUM CHLORIDE 1,000 ML IV ONE (20:34)
[2024-02-01 20:40] LABS: ALT/SGPT 11 U/L (<40); AST/SGOT 34 U/L (<40); Albumin 3.6 gm/dL (3.2-5.2); Albumin/Globulin Ratio 1.6 (1.0-2.3); Alkaline Phosphatase 72 U/L (39-117); Bilirubin,Total 0.3 mg/dL (0.1-1.0); Blood Urea Nitrogen 73 mg/dL (8-23); Carbon Dioxide 19 mmol/L (22-30); Chloride 107 mmol/L (96-108); Globulin 2.3 gm/dL (2.2-3.7); Glomerular Filtration Rate 18; Glucose 305 mg/dL (70-105); Sodium 141 mmol/L (133-145)
[2024-02-01 23:47] LABS: Appearance,Urine Clear (Clear); Bacteria,Urine 0 /hpf (0); Bilirubin,Urine Negative (Negative); Color,Urine Yellow; Culture Indicated,Urine No; Glucose,Urine (UA) Negative (Negative); Ketones,Urine Negative (Negative); Leukocyte Esterase,Urine Negative /uL (Negative); Nitrate,Urine Negative (Negative); Protein,Urine Trace mg/dL (Negative); Urine Blood Negative ery/mcL (Negative); Urine Hyaline Cast 1 /lph (0-2); Urine RBC 1 /hpf (0-3); Urine Squamous Epithelial Cell 1 /hpf (0-4); Urine WBC 0 /hpf (0-4); Urobilinogen,Urine Normal
[2024-02-02] MEDS: cefTRIAXone 1 GM VIAL IV ONE (00:04)
[2024-02-02] MEDS: LACTATED RINGERS 1,000 ML IV SCH (00:21)
[2024-02-02] MEDS ORDERED: DEXTROSE 31 GM ORAL.SUSP PO PRN (00:26)
[2024-02-02] MEDS ORDERED: DEXTROSE 50% 50 ML VIAL IV PRN (00:26)
[2024-02-02] MEDS ORDERED: SENNOSIDES 1 TABLET PO PRN (01:48)
[2024-02-02] MEDS ORDERED: ONDANSETRON 4 MG/2 ML VIAL IV PRN (01:48)
[2024-02-02] MEDS ORDERED: MAGNESIUM HYDROXIDE 30 ML ORAL.SUSP PO PRN (01:48)
[2024-02-02 06:00] LABS: Basophils # (Auto) 0.04 K/mcL (0.00-0.30); Basophils % (Auto) 0.3 % (0.0-2.0); Eosinophils # (Auto) 0 K/mcL (0.00-0.70); Eosinophils % (Auto) 0 % (0.0-7.0); Hematocrit 22.8 % (40.1-51.0); Hemoglobin 7.4 g/dL (13.7-17.5); Lymphocytes # (Auto) 0.94 K/mcL (1.50-4.80); Lymphocytes % (Auto) 6.4 % (15.5-49.0); Mean Cell Volume 108.6 fL (80.0-100.0); Mean Corpuscular HGB Conc 32.5 g/dL (31.0-36.0); Mean Platelet Volume 9.7 fL (8.8-12.5); Monocytes # (Auto) 0.85 K/mcL (0.10-0.90); Monocytes % (Auto) 5.8 % (1.0-12.0); Neutrophils % (Auto) 86.3 % (38.0-78.0); Platelet Count 156 K/mcL (140-440); Red Cell Distribution Width 14.1 % (11.5-14.5); WBC 14.7 K/mcL (4.5-11.0)
[2024-02-02 06:32] LABS: ALT/SGPT 20 U/L (<40); AST/SGOT 93 U/L (<40); Albumin 3.2 gm/dL (3.2-5.2); Albumin/Globulin Ratio 1.5 (1.0-2.3); Alkaline Phosphatase 56 U/L (39-117); Bilirubin,Total 0.3 mg/dL (0.1-1.0); Blood Urea Nitrogen 74 mg/dL (8-23); Calcium 8.5 mg/dL (8.6-10.4); Carbon Dioxide 18 mmol/L (22-30); Chloride 107 mmol/L (96-108); Globulin 2.1 gm/dL (2.2-3.7); Glomerular Filtration Rate 19; Glucose 244 mg/dL (70-105); Sodium 140 mmol/L (133-145)
[2024-02-02] MEDS: 0.9 % SODIUM CHLORIDE 10 ML SYRINGE IV SCH (06:51)
[2024-02-02] MEDS: INSULIN LISPRO 1 UNIT/0.01 ML UNIT SQ SCH (08:06)
[2024-02-02] MEDS ORDERED: FAMOTIDINE 20 MG TABLET PO PRN (08:08)
[2024-02-02] MEDS ORDERED: BISACODYL 10 MG SUPP.RECT PR PRN (08:08)
[2024-02-02] MEDS: CYCLOBENZAPRINE 10 MG TABLET PO SCH (09:05)
[2024-02-02] MEDS: AMIODARONE HCL 200 MG TABLET PO SCH (09:05)
[2024-02-02] MEDS: METOPROLOL SUCCINATE 50 MG TAB.XL.24H PO SCH ×2 (09:05→21:44)
[2024-02-02] MEDS: POLYETHYLENE GLYCOL 3350 17 GM PACKET PO ONE (09:05)
[2024-02-02] MEDS: ASPIRIN 81 MG TAB.CHEW PO SCH (09:05)
[2024-02-02] MEDS: FINASTERIDE 5 MG TABLET PO SCH (09:06)
[2024-02-02] MEDS: CEFEPIME 2 GM VIAL IV SCH (09:06)
[2024-02-02] MEDS: ACETAMINOPHEN 325 MG TABLET PO PRN (09:06)
[2024-02-02] MEDS: LEVOTHYROXINE 125 MCG TABLET PO SCH (09:06)
[2024-02-02] MEDS: NATEGLINIDE 120 MG TABLET PO SCH (09:06)
[2024-02-02] MEDS: DOXYCYCLINE 100 MG in DEXTROSE 5% IN WATER 100 ML IV SCH (09:10)
[2024-02-02] MEDS: METHOCARBAMOL 750 MG TABLET PO PRN (14:18)
[2024-02-02 14:45] LABS: Hematocrit 21.5 % (40.1-51.0)
[2024-02-02 16:07] LABS: Basophils # (Auto) 0.04 K/mcL (0.00-0.30); Basophils % (Auto) 0.3 % (0.0-2.0); Eosinophils # (Auto) 0 K/mcL (0.00-0.70); Eosinophils % (Auto) 0 % (0.0-7.0); Hematocrit 21.2 % (40.1-51.0); Hemoglobin 6.9 g/dL (13.7-17.5); Lymphocytes # (Auto) 1.22 K/mcL (1.50-4.80); Lymphocytes % (Auto) 9.7 % (15.5-49.0); Mean Cell Volume 107.6 fL (80.0-100.0); Mean Corpuscular HGB Conc 32.5 g/dL (31.0-36.0); Mean Platelet Volume 9.8 fL (8.8-12.5); Monocytes # (Auto) 0.87 K/mcL (0.10-0.90); Monocytes % (Auto) 6.9 % (1.0-12.0); Neutrophils % (Auto) 82.6 % (38.0-78.0); Platelet Count 138 K/mcL (140-440); RBC 1.97 M/mcL (4.63-6.08); Red Cell Distribution Width 14.4 % (11.5-14.5); WBC 12.6 K/mcL (4.5-11.0)
[2024-02-02] MEDS: 0.9 % SODIUM CHLORIDE 250 ML IV SCH (19:08)
[2024-02-02] MEDS: TERAZOSIN 5 MG CAPSULE PO SCH (21:44)
[2024-02-02] MEDS: ATORVASTATIN 40 MG TABLET PO SCH (21:44)
[2024-02-02] MEDS: INSULIN GLARGINE, HUMAN 1 UNIT/0.01 ML SQ SCH (21:45)
[2024-02-02] MEDS: HEPARIN 5,000 UNIT/ML VIAL SQ SCH (21:53)
[2024-02-03 03:51] LABS: Hematocrit 29.7 % (40.1-51.0)
[2024-02-03 05:52] LABS: Basophils # (Auto) 0.07 K/mcL (0.00-0.30); Basophils % (Auto) 0.5 % (0.0-2.0); Eosinophils # (Auto) 0.02 K/mcL (0.00-0.70); Eosinophils % (Auto) 0.2 % (0.0-7.0); Hematocrit 31.2 % (40.1-51.0); Hemoglobin 10.3 g/dL (13.7-17.5); Lymphocytes # (Auto) 1.39 K/mcL (1.50-4.80); Lymphocytes % (Auto) 10.5 % (15.5-49.0); Mean Cell Volume 96.3 fL (80.0-100.0); Mean Platelet Volume 9.6 fL (8.8-12.5); Monocytes # (Auto) 0.92 K/mcL (0.10-0.90); Neutrophils % (Auto) 81.6 % (38.0-78.0); Platelet Count 144 K/mcL (140-440); RBC 3.24 M/mcL (4.63-6.08); Red Cell Distribution Width 21.1 % (11.5-14.5); WBC 13.2 K/mcL (4.5-11.0)
[2024-02-03 06:04] LABS: C-Reactive Protein 29.6 mg/dL (0.03-0.80); Phosphorous 3.9 mg/dL (2.5-4.5)
[2024-02-03 06:06] LABS: ALT/SGPT 30 U/L (<40); AST/SGOT 113 U/L (<40); Albumin 3.1 gm/dL (3.2-5.2); Albumin/Globulin Ratio 1.2 (1.0-2.3); Alkaline Phosphatase 55 U/L (39-117); Bilirubin,Total 0.4 mg/dL (0.1-1.0); Blood Urea Nitrogen 73 mg/dL (8-23); Calcium 8.8 mg/dL (8.6-10.4); Carbon Dioxide 17 mmol/L (22-30); Chloride 108 mmol/L (96-108); Globulin 2.5 gm/dL (2.2-3.7); Glomerular Filtration Rate 19; Glucose 77 mg/dL (70-105); Sodium 139 mmol/L (133-145)
[2024-02-03] MEDS ORDERED: FAMOTIDINE 20 MG TABLET PO PRN (07:48)
[2024-02-03] MEDS: LEVOTHYROXINE 125 MCG TABLET PO SCH (08:12)
[2024-02-03] MEDS: NATEGLINIDE 120 MG TABLET PO SCH (10:33)
[2024-02-04 06:31] LABS: Basophils # (Auto) 0.07 K/mcL (0.00-0.30); Basophils % (Auto) 0.8 % (0.0-2.0); Eosinophils # (Auto) 0.22 K/mcL (0.00-0.70); Eosinophils % (Auto) 2.6 % (0.0-7.0); Hematocrit 28.9 % (40.1-51.0); Hemoglobin 9.4 g/dL (13.7-17.5); Lymphocytes # (Auto) 1.11 K/mcL (1.50-4.80); Lymphocytes % (Auto) 13.2 % (15.5-49.0); Mean Cell Volume 98.3 fL (80.0-100.0); Mean Corpuscular HGB Conc 32.5 g/dL (31.0-36.0); Mean Platelet Volume 10.1 fL (8.8-12.5); Monocytes # (Auto) 0.56 K/mcL (0.10-0.90); Monocytes % (Auto) 6.7 % (1.0-12.0); Neutrophils % (Auto) 76.3 % (38.0-78.0); Platelet Count 143 K/mcL (140-440); RBC 2.94 M/mcL (4.63-6.08); Red Cell Distribution Width 20.6 % (11.5-14.5); WBC 8.4 K/mcL (4.5-11.0)
[2024-02-04 06:48] LABS: ALT/SGPT 32 U/L (<40); AST/SGOT 81 U/L (<40); Albumin 2.8 gm/dL (3.2-5.2); Albumin/Globulin Ratio 1.2 (1.0-2.3); Alkaline Phosphatase 55 U/L (39-117); Bilirubin,Direct < 0.2 mg/dL (0-0.3); Bilirubin,Total 0.4 mg/dL (0.1-1.0); Blood Urea Nitrogen 77 mg/dL (8-23); Calcium 8.5 mg/dL (8.6-10.4); Carbon Dioxide 17 mmol/L (22-30); Chloride 111 mmol/L (96-108); Globulin 2.4 gm/dL (2.2-3.7); Glomerular Filtration Rate 18; Glucose 83 mg/dL (70-105); Lactate Dehydrogenase 350 U/L (135-225); Phosphorous 3.9 mg/dL (2.5-4.5); Sodium 140 mmol/L (133-145); Triglycerides 88 mg/dL (<150); Uric Acid 7.9 mg/dL (2.5-8.0)
[2024-02-04] MEDS: SODIUM BICARBONATE 650 MG TABLET PO SCH (09:18)
[2024-02-04] MEDS: amLODIPine 5 MG TABLET PO SCH (11:06)
[2024-02-04] MEDS: ALBUMIN HUMAN 12.5 GM/50 ML VIAL IV SCH (11:06)
[2024-02-04] MEDS: FUROSEMIDE 100 MG/10 ML VIAL IV SCH (11:06)
[2024-02-04] MEDS: HYDROcodone/APAP 5/325MG TABLET PO PRN (14:53)
[2024-02-04] MEDS: hydrALAZINE 20 MG/ML VIAL IV PRN (22:45)
[2024-02-05 06:39] LABS: ALT/SGPT 28 U/L (<40); AST/SGOT 59 U/L (<40); Albumin 3.2 gm/dL (3.2-5.2); Albumin/Globulin Ratio 1.2 (1.0-2.3); Alkaline Phosphatase 60 U/L (39-117); Bilirubin,Direct < 0.2 mg/dL (0-0.3); Bilirubin,Total 0.5 mg/dL (0.1-1.0); Blood Urea Nitrogen 78 mg/dL (8-23); Calcium 8.8 mg/dL (8.6-10.4); Carbon Dioxide 21 mmol/L (22-30); Chloride 106 mmol/L (96-108); Globulin 2.7 gm/dL (2.2-3.7); Glomerular Filtration Rate 18; Glucose 102 mg/dL (70-105); Lactate Dehydrogenase 317 U/L (135-225); Phosphorous 4.1 mg/dL (2.5-4.5); Potassium 3.7 mmol/L (3.3-5.1); Sodium 139 mmol/L (133-145); Triglycerides 101 mg/dL (<150); Uric Acid 8.7 mg/dL (2.5-8.0)
[2024-02-05] MEDS: FUROSEMIDE 40 MG/4 ML VIAL IV ONE (09:55)
[2024-02-05] MEDS: amLODIPine 5 MG TABLET PO ONE (10:32)
== END 2024-02-05 12:01 | DRG 563 ==
LOC: MEDSUR 18:29 → ED 18:29 → MEDSUR 02-02 01:36
PROVIDERS: ADMIT Student in an Organized Health Care Education/Training Program; ATTEND Internal Medicine